=== PATIENT | male | born 1955 | race Caucasian/White ===

== ENCOUNTER 2022-01-26 10:14 | Emergency (ER) | payer OTHER, MEDICARE ==
[~2022-01-26] VITALS: Ht 177.8 cm; Wt 63.6 kg
[2022-01-26 11:30] LABS: BASOPHILS # (AUTO) 0.1 X10'3 (0-0.2); BASOPHILS % (AUTO) 0.5 % (0-1); EOSINOPHILS % (AUTO) 0.1 % (0-6); HEMATOCRIT 33.8 % (42.0-52.0); HEMOGLOBIN 11.2 g/dl (14.0-17.9); LYMPHOCYTES # (AUTO) 1.5 X10'3 (1.1-4.8); LYMPHOCYTES % (AUTO) 12.9 % (21-51); MEAN CORPUSCULAR HEMOGLOBIN 29.3 PG (27.0-31.0); MEAN CORPUSCULAR HGB CONC 33.2 g/dL (33.0-36.5); MEAN CORPUSCULAR VOLUME 88.1 FL (78-98); MEAN PLATELET VOLUME 8.3 FL (7.4-10.4); MONOCYTES # (AUTO) 1.1 X10'3 (0-0.9); MONOCYTES % (AUTO) 9.3 % (2-12); NEUTROPHILS # (AUTO) 8.8 X10'3 (1.8-7.7); NEUTROPHILS % (AUTO) 77.2 % (42-75); PLATELET COUNT 410 X10'3 (140-440); RED BLOOD COUNT 3.83 X10'6 (4.70-6.10); RED CELL DISTRIBUTION WIDTH 13.6 % (11.5-14.5); WHITE BLOOD COUNT 11.4 X10'3 (4.5-11.0)
[2022-01-26 11:40] LABS: ALANINE AMINOTRANSFERASE 30 U/L (12-78); ALBUMIN 3.9 G/DL (3.4-5.0); ALBUMIN/GLOBULIN RATIO 0.9 (1.1-1.5); ALKALINE PHOSPHATASE 135 IU/L (46-116); ANION GAP 12 (8-16); ASPARTATE AMINO TRANSFERASE 41 U/L (10-37); BILIRUBIN,TOTAL 0.8 MG/DL (0.1-1.0); BLOOD UREA NITROGEN 16 MG/DL (7-18); BUN/CREATININE RATIO 17.6 (5.4-32.0); CALCIUM 9.4 MG/DL (8.5-10.1); CHLORIDE 92 MMOL/L (99-107); CREATININE 0.91 MG/DL (0.60-1.10); GLUCOSE 413 MG/DL (70-104); LIPASE < 50 U/L (73-393); POTASSIUM 4.7 MMOL/L (3.5-5.1); SODIUM 131 MMOL/L (135-145); TOTAL PROTEIN 8.2 G/DL (6.4-8.2); eGFR 83 ML/MIN
[2022-01-26] MEDS ORDERED: normal saline 1000ML IV soln IVB ONE ×2 (11:45→11:55)
[2022-01-26] MEDS ORDERED: ondansetron/PF 4mg/2ml inj IV ONE (12:55)
[2022-01-26] MEDS ORDERED: morphine 4 MG/ML inj SYRINge IV ONE ×3 (12:55→14:50)
[2022-01-26] MEDS ORDERED: insulin regular, human 10 units/0.1 ml syringe SQ ONE (13:10)
--- NOTE | 2022-01-26 13:33 | NUR ---
PATIENT REFUSED EKG STATING HE NEEDS SOMETHING FOR PAIN BEFORE HE WILL LAY DOWN. WILL TRY AGAIN FOR EKG AFTER MEDICATION ADMINISTERED.
[2022-01-26] MEDS ORDERED: HYDROcodone/acetaminophen 5mg/325mg tablet PO ONE (13:50)
[2022-01-26] MEDS ORDERED: LORazepam 2 mg/ml vial IV ONE (14:50)
[2022-01-26 15:27] LABS: ABG BASE EXCESS 5.9 mmol/L (-2.0-2.0); ABG HCO3 30.3 mmol/L (22.0-26.0); ABG OXYGEN SATURATION 95.3 % (94-97); ABG PCO2 (T) 43.3 mmHg (35.0-48.0); ABG PO2 (T) 75.5 mmHg (75.0-100.0); ALLEN'S TEST POSITIVE; FCOHb 0.6 % (0.0-3.9); FMetHb 0.3 % (0.0-1.5); FO2Hb 94.4 % (94-97); TOTAL HEMOGLOBIN 11.2 G/dl (14.0-18.0)
[2022-01-26] MEDS ORDERED: HYDR-3965 PO (15:58)
[2022-01-26] MEDS ORDERED: ONDA4TAB12 PO (16:08)
[2022-01-26 18:42] VITALS: BP 122/71
== END 2022-01-26 18:44 | disposition home or self-care (01) ==
LOC: ER 10:15
DX: E11.65 Type 2 diabetes mellitus with hyperglycemia (principal); E86.0 Dehydration; I10 Essential (primary) hypertension; G89.29 Other chronic pain; Z90.49 Acquired absence of other specified parts of digestive tract; Z98.890 Other specified postprocedural states; Z88.8 Allergy status to other drugs, medicaments and biological substances; Z79.899 Other long term (current) drug therapy
CPT/HCPCS: 36415; 36600; 71045; 80053; 80320; 82803; 82948; 83605; 83690; 84145; 85018; 85025; 87040; 93005; 96361; 96372; 96374; 96375; 96376; 99285; J1815; J2060; J2270; J2405; J7030

== ENCOUNTER 2022-11-07 23:29 | Emergency (ER) | payer OTHER, BC ==
[~2022-11-07] VITALS: Ht 177.8 cm; Wt 62.6 kg
[~2022-11-07 23:29] MED LIST: CEPH-585 PO; DULO40CA2 PO; FENT1PAT12 TD; GOLYS PO; INSU100C10 SQ; LACT10SO3 PO; LACT1CAP65 PO; MORP60CP14 PO; ONDA4TAB12 PO; TRAZ-251 PO; ZOF4T PO; ZOLP10TA5 PO; [UNRECOGNIZED DRUG - CODE] PO; [UNRECOGNIZED DRUG - CODE] PO
[2022-11-07 23:31] VITALS: BP 136/55
== END 2022-11-08 03:23 | disposition left against medical advice (07) ==
LOC: ER 23:30
DX: K59.03 Drug induced constipation (principal); T40.2X5A Adverse effect of other opioids, initial encounter; E11.9 Type 2 diabetes mellitus without complications; G89.29 Other chronic pain; Y92.89 Other specified places as the place of occurrence of the external cause; Z88.8 Allergy status to other drugs, medicaments and biological substances; Z79.899 Other long term (current) drug therapy
CPT/HCPCS: 74018; 99283

== ENCOUNTER 2022-11-09 08:53 | Emergency (ER) | payer OTHER, BC ==
[~2022-11-09] VITALS: Ht 177.8 cm; Wt 72.0 kg
[2022-11-09] MEDS ORDERED: magnesium oxide 400mg tablet PO ONE (10:25)
[2022-11-09] MEDS ORDERED: lactulose 20gm/30ml cup PO ONE (10:25)
[2022-11-09] MEDS ORDERED: methylnaltrexone br 12mg/0.6ml inj***SubQ only SQ ONE (10:25)
[2022-11-09] MEDS ORDERED: bisacodyl 10mg suppository rectal RC STA (10:27)
[2022-11-09 11:33] VITALS: BP 142/86
--- NOTE | 2022-11-09 12:32 | NUR ---
pt had large BM after medications given.
== END 2022-11-09 14:42 | disposition home or self-care (01) ==
LOC: ER 08:54
DX: K59.00 Constipation, unspecified (principal); E11.9 Type 2 diabetes mellitus without complications; Z88.8 Allergy status to other drugs, medicaments and biological substances; Z90.49 Acquired absence of other specified parts of digestive tract
CPT/HCPCS: 74018; 96372; 99284; J2212

== ENCOUNTER 2022-12-17 10:19 | Emergency (ER) | payer OTHER, BC ==
[~2022-12-17] VITALS: Ht 177.8 cm; Wt 68.2 kg
[2022-12-17 10:35] VITALS: BP 90/51
[2022-12-17] MEDS ORDERED: methylnaltrexone br 12mg/0.6ml inj***SubQ only SQ ONE (11:45)
== END 2022-12-17 12:15 | disposition home or self-care (01) ==
LOC: ER 10:20
DX: K59.00 Constipation, unspecified (principal); E11.9 Type 2 diabetes mellitus without complications; G89.29 Other chronic pain; Z88.5 Allergy status to narcotic agent; Z88.8 Allergy status to other drugs, medicaments and biological substances
CPT/HCPCS: 96372; 99283; J2212

== ENCOUNTER 2023-01-13 10:27 | Emergency (ER) | payer OTHER, BC ==
[~2023-01-13] VITALS: Ht 177.8 cm; Wt 72.7 kg
[2023-01-13] MEDS ORDERED: lactulose 20gm/30ml cup PO ONE (11:50)
[2023-01-13] MEDS ORDERED: methylnaltrexone br 12mg/0.6ml inj***SubQ only SQ ONE (11:50)
[2023-01-13 12:45] VITALS: BP 121/98
== END 2023-01-13 12:47 | disposition home or self-care (01) ==
LOC: ER 10:28
DX: K59.00 Constipation, unspecified (principal); E11.9 Type 2 diabetes mellitus without complications; Z88.5 Allergy status to narcotic agent; Z88.8 Allergy status to other drugs, medicaments and biological substances; Z88.6 Allergy status to analgesic agent; Z79.899 Other long term (current) drug therapy
CPT/HCPCS: 74018; 96372; 99284; J2212; 99283

== ENCOUNTER 2023-03-07 20:28 | Emergency (ER) | payer OTHER, BC, MEDICAID ==
[~2023-03-07 20:28] MED LIST changes: -CEPH-585 PO
== END 2023-03-07 22:05 | disposition left against medical advice (07) ==
LOC: ER 20:28
DX: R10.9 Unspecified abdominal pain (principal); Z53.21 Procedure and treatment not carried out due to patient leaving prior to being seen by health care provider

== ENCOUNTER 2024-02-16 10:28 | Emergency (ER) | payer OTHER, MEDICARE ==
[~2024-02-16] VITALS: Ht 177.8 cm; Wt 65.0 kg
[~2024-02-16 10:28] MED LIST changes: -GOLYS PO; +HYDR4TAB55 PO; -LACT10SO3 PO; -LACT1CAP65 PO; -ONDA4TAB12 PO; +SULF1TAB45 PO; -[UNRECOGNIZED DRUG - CODE] PO
[2024-02-16] MEDS: magnesium citrate 296ml oral solution PO ONE (13:41)
[2024-02-16] MEDS: methylnaltrexone br 12mg/0.6ml inj***SubQ only SQ ONE (13:41)
[2024-02-16 13:54] VITALS: BP 118/60; PULSE 74; RESP 16; TEMP 97.8; O2SAT 99
== END 2024-02-16 16:25 | disposition home or self-care (01) ==
LOC: ER 10:29
DX: K59.00 Constipation, unspecified (principal); E11.9 Type 2 diabetes mellitus without complications; I25.10 Atherosclerotic heart disease of native coronary artery without angina pectoris; Z88.5 Allergy status to narcotic agent; Z88.8 Allergy status to other drugs, medicaments and biological substances; Z79.899 Other long term (current) drug therapy; Z79.4 Long term (current) use of insulin; Z90.49 Acquired absence of other specified parts of digestive tract
CPT/HCPCS: 74018; 96372; 99283; J2212

== ENCOUNTER 2024-02-17 14:34 | Emergency (ER) | payer OTHER, MEDICARE ==
[~2024-02-17] VITALS: Ht 172.7 cm; Wt 81.8 kg
[2024-02-17 14:54] VITALS: BP 108/60; PULSE 79; TEMP 97.8; O2SAT 98
[2024-02-17 17:13] VITALS: RESP 16
[2024-02-17] MEDS: methylnaltrexone br 12mg/0.6ml inj***SubQ only SQ ONE (17:18)
== END 2024-02-17 17:41 | disposition home or self-care (01) ==
LOC: ER 14:35
DX: K59.00 Constipation, unspecified (principal); E11.9 Type 2 diabetes mellitus without complications; G89.29 Other chronic pain; Z88.5 Allergy status to narcotic agent; Z88.8 Allergy status to other drugs, medicaments and biological substances; Z79.899 Other long term (current) drug therapy; Z79.4 Long term (current) use of insulin; Z90.49 Acquired absence of other specified parts of digestive tract
CPT/HCPCS: 96372; 99283; J2212

== ENCOUNTER 2024-03-13 07:54 | Inpatient (IN) | payer OTHER, MEDICARE ==
[~2024-03-13] VITALS: Ht 177.8 cm; Wt 65.0 kg
[~2024-03-13 07:54] MED LIST changes: -SULF1TAB45 PO
[2024-03-13] MEDS: normal saline 1000ml 1,000 ML IV ONE (09:31)
[2024-03-13 09:50] LABS: BASOPHILS # (AUTO) 0.1 X10'3 (0-0.2); BASOPHILS % (AUTO) 0.8 % (0-1); EOSINOPHILS # (AUTO) 0.1 X10'3 (0-0.9); EOSINOPHILS % (AUTO) 0.7 % (0-6); HEMATOCRIT 39.1 % (42.0-52.0); HEMOGLOBIN 12.7 g/dl (14.0-17.9); LYMPHOCYTES # (AUTO) 1.8 X10'3 (1.1-4.8); LYMPHOCYTES % (AUTO) 18.8 % (21-51); MEAN CORPUSCULAR HEMOGLOBIN 30.4 PG (27.0-31.0); MEAN CORPUSCULAR HGB CONC 32.5 g/dL (33.0-36.5); MEAN CORPUSCULAR VOLUME 93.5 FL (78-98); MEAN PLATELET VOLUME 8.6 FL (7.4-10.4); MONOCYTES # (AUTO) 1.3 X10'3 (0-0.9); MONOCYTES % (AUTO) 12.8 % (2-12); NEUTROPHILS # (AUTO) 6.6 X10'3 (1.8-7.7); NEUTROPHILS % (AUTO) 66.9 % (42-75); PLATELET COUNT 235 X10'3 (140-440); RED BLOOD COUNT 4.19 X10'6 (4.70-6.10); RED CELL DISTRIBUTION WIDTH 13.8 % (11.5-14.5); WHITE BLOOD COUNT 9.8 X10'3 (4.5-11.0)
[2024-03-13 09:55] LABS: BILIRUBIN,URINE NEGATIVE (Neg); CLARITY,URINE CLOUDY (Clear); COLOR,URINE YELLOW (Yellow); GLUCOSE, URINE >=1000 mg/dl (Neg); KETONES,URINE 40 mg/dl (Neg); LEUKOCYTE ESTERASE ,URINE TRACE (Neg); NITRITES, URINE POSITIVE (Neg); OCCULT BLOOD,URINE NEGATIVE (Neg); PROTEIN,URINE NEGATIVE (Neg); UROBILINOGEN,URINE 0.2 E.U/dL (0.2-1.0)
[2024-03-13 10:04] LABS: BACTERIA,URINE 2+ /HPF (Neg); SQUAMOUS EPITHELIAL CELL,UR FEW /LPF (FEW); UA COLLECTION TYPE FOLEY CATH
[2024-03-13 10:05] LABS: MUCUS STRANDS FEW /LPF (Neg); RBC,URINE 0-2 /HPF (0-2); TRANSITIONAL EPI CELLS,URINE FEW /HPF; WBC CLUMPS,URINE MANY /HPF (NEGATIVE); WBC,URINE 30-50 /HPF (0-4)
[2024-03-13 10:06] LABS: ALBUMIN 4.1 G/DL (3.4-5.0); ANION GAP 7 (8-16); BLOOD UREA NITROGEN 20 MG/DL (7-18); BUN/CREATININE RATIO 23.3 (10.0-20.0); CALCIUM 9.7 MG/DL (8.5-10.1); CHLORIDE 90 MMOL/L (99-107); CREATININE 0.86 MG/DL (0.60-1.10); GLUCOSE 384 MG/DL (70-104); SODIUM 131 MMOL/L (135-145); TOTAL CARBON DIOXIDE 34.4 MMOL/L (24-32); eCRCL 75 ML/MIN; eGFR 88 ML/MIN
[2024-03-13 10:06] LABS: COARSE GRANULAR CAST 0-3 /LPF (NEGATIVE)
[2024-03-13] MEDS: cephalexin 250mg capsule PO ONE (10:49)
[2024-03-13] MEDS ORDERED: diphenhydrAMINE 50 mg/ml inj IV PRN (11:10)
[2024-03-13] MEDS ORDERED: acetaminophen 650mg rectal suppository RC PRN (11:10)
[2024-03-13] MEDS ORDERED: acetaminophen 325mg tablet PO PRN ×2 (11:10)
[2024-03-13] MEDS ORDERED: diphenhydrAMINE 25mg capsule PO PRN (11:10)
[2024-03-13] MEDS ORDERED: ondansetron 4mg rapidly disintigrating tab PO PRN (11:10)
[2024-03-13] MEDS ORDERED: magnesium hydroxide 30ml (MOM) UD suspension PO PRN (11:10)
[2024-03-13] MEDS ORDERED: mag hydrox/Alum hydrox/simeth 30ml oral suspension PO PRN (11:10)
[2024-03-13] MEDS ORDERED: bisacodyl 10mg suppository rectal RC PRN (11:10)
[2024-03-13] MEDS ORDERED: ondansetron/PF 4mg/2ml inj IV PRN (11:10)
[2024-03-13] MEDS ORDERED: zolpidem 5mg tablet PO PRN (11:15)
[2024-03-13 11:32] LABS: APTT 24 SECONDS (22-32)
[2024-03-13 11:39] LABS: MAGNESIUM 2.4 MG/DL (1.5-2.4); PHOSPHORUS 3.2 MG/DL (2.3-4.5); PRO BRAIN NATRIURETIC PEPTIDE 192 PG/ML (0-125)
[2024-03-13] MEDS: normal saline 1000ml 1,000 ML IV SCH (11:50)
[2024-03-13] MEDS: HYDROcodone/acetaminophen 5mg/325mg tablet PO PRN (13:01)
[2024-03-13] MEDS: haloperidol lactate 5mg/ml inj IVH ONE (13:55)
[2024-03-13] MEDS: LORazepam 1 MG tablet PO ONE (14:07)
[2024-03-13] MEDS: fentaNYL 75 MCG/hour patch.TD72 TD SCH (16:10)
[2024-03-13] MEDS: diazepam inj 5 MG/ML inj. IM ONE (16:15)
[2024-03-13 19:35] LABS: THYROID STIMULATING HORMONE 3.03 ulU/ml (0.34-4.50)
[2024-03-13] MEDS: docusate sod 100mg capsule PO SCH (20:00)
[2024-03-13] MEDS ORDERED: temazepam 15mg capsule PO PRN (21:00)
[2024-03-13] MEDS: heparin, porcine 5000 units/ml vial SQ SCH (21:02)
[2024-03-13] MEDS: duloxetine 20mg capsule.DR PO SCH (21:07)
[2024-03-13] MEDS: traZODone 50mg tablet PO SCH (21:07)
[2024-03-13 22:00] VITALS: BP 109/61; PULSE 89; RESP 12; TEMP 97.6; O2SAT 92
[2024-03-13] MEDS ORDERED: DEXTROSE 15 GM of carb/4 tabs (each vial/BOTTLE has 4 tablets) PO PRN ×2 (23:15)
[2024-03-13] MEDS ORDERED: dextrose 50%-water 50ml dispensing syringe IV PRN ×2 (23:15)
[2024-03-13] MEDS ORDERED: glucagon, human recombinant 1mg kit SUBCUT PRN (23:15)
[2024-03-14 05:36] LABS: BASOPHILS % (AUTO) 0.4 % (0-1); EOSINOPHILS # (AUTO) 0.2 X10'3 (0-0.9); EOSINOPHILS % (AUTO) 1.8 % (0-6); HEMATOCRIT 37.8 % (42.0-52.0); HEMOGLOBIN 12.4 g/dl (14.0-17.9); LYMPHOCYTES # (AUTO) 1.8 X10'3 (1.1-4.8); LYMPHOCYTES % (AUTO) 18.1 % (21-51); MEAN CORPUSCULAR HEMOGLOBIN 30.4 PG (27.0-31.0); MEAN CORPUSCULAR HGB CONC 32.9 g/dL (33.0-36.5); MEAN CORPUSCULAR VOLUME 92.4 FL (78-98); MEAN PLATELET VOLUME 9.5 FL (7.4-10.4); MONOCYTES # (AUTO) 0.9 X10'3 (0-0.9); NEUTROPHILS # (AUTO) 7.1 X10'3 (1.8-7.7); NEUTROPHILS % (AUTO) 70.7 % (42-75); PLATELET COUNT 221 X10'3 (140-440); RED BLOOD COUNT 4.09 X10'6 (4.70-6.10); RED CELL DISTRIBUTION WIDTH 13.8 % (11.5-14.5); WHITE BLOOD COUNT 10.1 X10'3 (4.5-11.0)
[2024-03-14 05:50] LABS: ALANINE AMINOTRANSFERASE 44 U/L (12-78); ALBUMIN 3.2 G/DL (3.4-5.0); ALBUMIN/GLOBULIN RATIO 0.9 (1.1-1.5); ALKALINE PHOSPHATASE 122 IU/L (46-116); ANION GAP 8 (8-16); ASPARTATE AMINO TRANSFERASE 37 U/L (10-37); BILIRUBIN,TOTAL 0.9 MG/DL (0.1-1.0); BLOOD UREA NITROGEN 13 MG/DL (7-18); BUN/CREATININE RATIO 17.8 (10.0-20.0); CALCIUM 8.7 MG/DL (8.5-10.1); CHLORIDE 94 MMOL/L (99-107); CHOL/HDL RATIO 2.4 (0.00-4.99); CHOLESTEROL 192 MG/DL (0-200); CREATININE 0.73 MG/DL (0.60-1.10); GLUCOSE 305 MG/DL (70-104); HDL CHOLESTEROL 80 MG/DL (35-60); LDL CHOLESTEROL 92 MG/DL (50-100); POTASSIUM 4.7 MMOL/L (3.5-5.1); SODIUM 134 MMOL/L (135-145); TOTAL CARBON DIOXIDE 32.4 MMOL/L (24-32); TOTAL PROTEIN 6.6 G/DL (6.4-8.2); TRIGLYCERIDES 92 MG/DL (20-135); eCRCL 88 ML/MIN; eGFR > 90 ML/MIN
[2024-03-14 06:00] VITALS: BP 127/69; PULSE 85; RESP 13; TEMP 97.8; O2SAT 94
[2024-03-14] MEDS: nicotine 21mg patch - 24 hr TD SCH (07:09)
[2024-03-14] MEDS: pantoprazole 40mg Tablet.DR PO SCH (07:10)
[2024-03-14] MEDS: CefTRIAXone/D5W-Rocephin 1gm 50 ML IV SCH (07:10)
[2024-03-14] MEDS: ondansetron 4mg rapidly disintigrating tab PO PRN ×2 (07:28→12:43)
[2024-03-14 08:00] VITALS: RESP 12; O2SAT 94
[2024-03-14] MEDS: INSULIN LISPRO 100 UNIT/ML INSULN.PEN MULTI-DOSE SQ SCH ×2 (09:00→09:05)
[2024-03-14 10:00] VITALS: BP 120/65; PULSE 78; RESP 15; TEMP 97.8; O2SAT 93
[2024-03-14] MEDS ORDERED: fentaNYL 75 MCG/hour patch.TD72 TD SCH (12:57)
[2024-03-14] MEDS: lactose-reduced food (Ensure Enlive) - 237ml bottle PO SCH (13:00)
[2024-03-14] MEDS: morphine 2 MG/ML inj. syringe IV PRN (14:01)
[2024-03-14 18:00] VITALS: BP 126/72; PULSE 85; RESP 14; TEMP 98; O2SAT 90
[2024-03-14] MEDS: HYDROmorphone 2mg tablet PO SCH (19:58)
[2024-03-14 20:00] VITALS: RESP 16; O2SAT 95
[2024-03-14] MEDS: insulin glargine (Lantus) pen - multi-dose SQ SCH (21:39)
[2024-03-14 22:00] VITALS: BP 122/66; PULSE 84; RESP 14; TEMP 98.3; O2SAT 95
[2024-03-15 06:00] VITALS: BP 101/56; PULSE 68; RESP 18; TEMP 96.9; O2SAT 96
[2024-03-15] MEDS: methylnaltrexone br 12mg/0.6ml inj***SubQ only SQ ONE (06:07)
[2024-03-15 07:37] LABS: BASOPHILS % (AUTO) 0.4 % (0-1); EOSINOPHILS # (AUTO) 0.2 X10'3 (0-0.9); EOSINOPHILS % (AUTO) 2.2 % (0-6); HEMATOCRIT 42.1 % (42.0-52.0); HEMOGLOBIN 13.5 g/dl (14.0-17.9); LYMPHOCYTES # (AUTO) 2.6 X10'3 (1.1-4.8); LYMPHOCYTES % (AUTO) 26.3 % (21-51); MEAN CORPUSCULAR HEMOGLOBIN 30.3 PG (27.0-31.0); MEAN CORPUSCULAR VOLUME 94.5 FL (78-98); MONOCYTES % (AUTO) 10.1 % (2-12); NEUTROPHILS # (AUTO) 6.1 X10'3 (1.8-7.7); PLATELET COUNT 272 X10'3 (140-440); RED BLOOD COUNT 4.45 X10'6 (4.70-6.10); RED CELL DISTRIBUTION WIDTH 13.9 % (11.5-14.5)
[2024-03-15 07:50] LABS: ALANINE AMINOTRANSFERASE 46 U/L (12-78); ALBUMIN 3.6 G/DL (3.4-5.0); ALBUMIN/GLOBULIN RATIO 0.9 (1.1-1.5); ALKALINE PHOSPHATASE 119 IU/L (46-116); ANION GAP 4 (8-16); ASPARTATE AMINO TRANSFERASE 41 U/L (10-37); BILIRUBIN,TOTAL 0.6 MG/DL (0.1-1.0); BLOOD UREA NITROGEN 17 MG/DL (7-18); CHLORIDE 94 MMOL/L (99-107); CREATININE 0.85 MG/DL (0.60-1.10); GLUCOSE 299 MG/DL (70-104); POTASSIUM 4.6 MMOL/L (3.5-5.1); SODIUM 133 MMOL/L (135-145); TOTAL PROTEIN 7.5 G/DL (6.4-8.2); eCRCL 75 ML/MIN; eGFR 89 ML/MIN
[2024-03-15 08:45] VITALS: RESP 16
[2024-03-15 12:00] VITALS: BP 115/74; PULSE 88; RESP 15; TEMP 97.9; O2SAT 94
[2024-03-15] MEDS ORDERED: GADOTERATE MEGLUMINE 7.5 MMOL/15 ML VIAL IV ONE (14:39)
[2024-03-15] MEDS: mineral oil 133ml enema RC PRN (16:08)
[2024-03-15] MEDS: INSULIN LISPRO 100 UNIT/ML INSULN.PEN MULTI-DOSE SQ SCH (17:45)
[2024-03-15 18:00] VITALS: BP 121/74; PULSE 80; RESP 14; TEMP 97.9; O2SAT 96
[2024-03-15] MEDS: magnesium citrate 296ml oral solution PO ONE (19:45)
[2024-03-15] MEDS: lactulose 20gm/30ml cup PO SCH (20:00)
[2024-03-15 20:27] LABS: OCCULT BLOOD STOOL NEGATIVE (Neg)
[2024-03-15] MEDS: polyethylene glycol 3350 17gm powd pack PO SCH (21:00)
[2024-03-15] MEDS: morphine ER 30mg tablet PO SCH (21:19)
[2024-03-15 22:00] VITALS: BP 100/52; PULSE 82; RESP 15; TEMP 97.9; O2SAT 99
[2024-03-16 06:00] VITALS: BP 134/82; PULSE 72; RESP 16; TEMP 96.7; O2SAT 96
[2024-03-16 07:41] LABS: BASOPHILS # (AUTO) 0.1 X10'3 (0-0.2); BASOPHILS % (AUTO) 0.6 % (0-1); EOSINOPHILS # (AUTO) 0.3 X10'3 (0-0.9); EOSINOPHILS % (AUTO) 3.5 % (0-6); HEMATOCRIT 42.5 % (42.0-52.0); HEMOGLOBIN 13.8 g/dl (14.0-17.9); LYMPHOCYTES # (AUTO) 2.4 X10'3 (1.1-4.8); LYMPHOCYTES % (AUTO) 25.4 % (21-51); MEAN CORPUSCULAR HEMOGLOBIN 30.5 PG (27.0-31.0); MEAN CORPUSCULAR HGB CONC 32.4 g/dL (33.0-36.5); MEAN CORPUSCULAR VOLUME 94.3 FL (78-98); MEAN PLATELET VOLUME 9.3 FL (7.4-10.4); MONOCYTES % (AUTO) 10.8 % (2-12); NEUTROPHILS # (AUTO) 5.6 X10'3 (1.8-7.7); NEUTROPHILS % (AUTO) 59.7 % (42-75); PLATELET COUNT 227 X10'3 (140-440); RED BLOOD COUNT 4.51 X10'6 (4.70-6.10); RED CELL DISTRIBUTION WIDTH 14.5 % (11.5-14.5); WHITE BLOOD COUNT 9.4 X10'3 (4.5-11.0)
[2024-03-16] MEDS ORDERED: vancomycin/NS 1 GM ADD-VANTAGE 250 ML IV SCH (08:00)
[2024-03-16 08:17] LABS: ALANINE AMINOTRANSFERASE 47 U/L (12-78); ALBUMIN 3.2 G/DL (3.4-5.0); ALBUMIN/GLOBULIN RATIO 0.8 (1.1-1.5); ALKALINE PHOSPHATASE 107 IU/L (46-116); ANION GAP 0 (8-16); ASPARTATE AMINO TRANSFERASE 48 U/L (10-37); BILIRUBIN,TOTAL 0.4 MG/DL (0.1-1.0); BLOOD UREA NITROGEN 16 MG/DL (7-18); BUN/CREATININE RATIO 21.1 (10.0-20.0); CALCIUM 9.1 MG/DL (8.5-10.1); CHLORIDE 101 MMOL/L (99-107); CREATININE 0.76 MG/DL (0.60-1.10); GLUCOSE 98 MG/DL (70-104); SODIUM 136 MMOL/L (135-145); TOTAL CARBON DIOXIDE 35.1 MMOL/L (24-32); TOTAL PROTEIN 7.1 G/DL (6.4-8.2); eCRCL 84 ML/MIN; eGFR > 90 ML/MIN
[2024-03-16 10:00] VITALS: BP 126/80; PULSE 91; RESP 18; TEMP 98.2; O2SAT 95
[2024-03-16 10:22] VITALS: RESP 18; O2SAT 95
[2024-03-16] MEDS: LIDOcaine 2% jelly 6ml syringe ***for topical use only MM ONE (12:25)
[2024-03-16] MEDS ORDERED: CEPH500C2 PO (13:34)
[2024-03-16] MEDS: LidoCAINE 2% Topical Jelly 11mL syringe (UROJET) MM ONE (14:58)
[2024-03-16] MEDS: fentaNYL 75 MCG/hour patch.TD72 TD SCH (16:55)
[2024-03-16 17:22] VITALS: RESP 15
[2024-03-16] MEDS: HYDROmorphone 2mg tablet PO PRN (17:22)
== END 2024-03-16 18:31 | disposition home or self-care (01) | DRG 698 ==
LOC: ER 07:56 → ED HOLD 11:12 → EDBEDREQ 20:40 → ORTHO 4S 21:56
PROVIDERS: ADMIT Family Medicine; ATTEND Family Medicine
DX: T83.518A Infection and inflammatory reaction due to other urinary catheter, initial encounter (principal); G93.41 Metabolic encephalopathy; L03.116 Cellulitis of left lower limb; N39.0 Urinary tract infection, site not specified; I50.32 Chronic diastolic (congestive) heart failure; I13.0 Hypertensive heart and chronic kidney disease with heart failure and stage 1 through stage 4 chronic kidney disease, or unspecified chronic kidney disease; M86.8X7 Other osteomyelitis, ankle and foot; E11.69 Type 2 diabetes mellitus with other specified complication; E78.5 Hyperlipidemia, unspecified; E11.22 Type 2 diabetes mellitus with diabetic chronic kidney disease; E11.65 Type 2 diabetes mellitus with hyperglycemia; E86.0 Dehydration; N18.9 Chronic kidney disease, unspecified; K59.09 Other constipation; N40.1 Benign prostatic hyperplasia with lower urinary tract symptoms; S91.302A Unspecified open wound, left foot, initial encounter; X58.XXXA Exposure to other specified factors, initial encounter; R33.8 Other retention of urine; G89.4 Chronic pain syndrome; I25.10 Atherosclerotic heart disease of native coronary artery without angina pectoris; K74.60 Unspecified cirrhosis of liver; E11.51 Type 2 diabetes mellitus with diabetic peripheral angiopathy without gangrene; D64.9 Anemia, unspecified; B96.20 Unspecified Escherichia coli [E. coli] as the cause of diseases classified elsewhere; Z83.3 Family history of diabetes mellitus; B19.20 Unspecified viral hepatitis C without hepatic coma; F10.20 Alcohol dependence, uncomplicated; Y93.89 Activity, other specified; Z88.8 Allergy status to other drugs, medicaments and biological substances; Z72.0 Tobacco use; Z88.5 Allergy status to narcotic agent; Y99.8 Other external cause status; Z87.442 Personal history of urinary calculi; Z90.411 Acquired partial absence of pancreas; Z90.79 Acquired absence of other genital organ(s); Y92.89 Other specified places as the place of occurrence of the external cause; Z90.81 Acquired absence of spleen
CPT/HCPCS: 36415; 70450; 71045; 73720; 74018; 80048; 80053; 80061; 81001; 82140; 82272; 82948; 83036; 83605; 83735; 83880; 84100; 84145; 84443; 84484; 85025; 85610; 85730; 87040; 87077; 87081; 87088; 87186; 92508; 92616; 96360; 99285; A4314; A4615; A6212; A6213; A6449; A9575; G0378; J0696; J1644; J1815; J2212; J2270; J7030

== ENCOUNTER 2024-03-18 21:48 | Emergency (ER) | payer OTHER, MEDICARE ==
[~2024-03-18] VITALS: Ht 177.8 cm; Wt 64.4 kg
[~2024-03-18 21:48] MED LIST changes: +CEPH500C2 PO; -[UNRECOGNIZED DRUG - CODE] PO
[2024-03-18] MEDS: methylnaltrexone br 12mg/0.6ml inj***SubQ only SQ ONE (22:43)
[2024-03-18 22:58] LABS: ALANINE AMINOTRANSFERASE 110 U/L (12-78); ALBUMIN 3.6 G/DL (3.4-5.0); ALBUMIN/GLOBULIN RATIO 0.9 (1.1-1.5); ALKALINE PHOSPHATASE 110 IU/L (46-116); ANION GAP 4 (8-16); ASPARTATE AMINO TRANSFERASE 120 U/L (10-37); BILIRUBIN,TOTAL 0.5 MG/DL (0.1-1.0); BLOOD UREA NITROGEN 24 MG/DL (7-18); BUN/CREATININE RATIO 21.2 (10.0-20.0); CALCIUM 9.2 MG/DL (8.5-10.1); CHLORIDE 91 MMOL/L (99-107); CREATININE 1.13 MG/DL (0.60-1.10); LIPASE 21 U/L (16-77); POTASSIUM 5.6 MMOL/L (3.5-5.1); SODIUM 129 MMOL/L (135-145); TOTAL CARBON DIOXIDE 34.3 MMOL/L (24-32); TOTAL PROTEIN 7.5 G/DL (6.4-8.2); eCRCL 56 ML/MIN; eGFR 64 ML/MIN
[2024-03-18 23:01] LABS: GLUCOSE 474 MG/DL (70-104)
[2024-03-18 23:08] LABS: BASOPHILS # (AUTO) 0.1 X10'3 (0-0.2); BASOPHILS % (AUTO) 0.9 % (0-1); EOSINOPHILS # (AUTO) 0.2 X10'3 (0-0.9); EOSINOPHILS % (AUTO) 1.7 % (0-6); HEMATOCRIT 35.2 % (42.0-52.0); HEMOGLOBIN 11.7 g/dl (14.0-17.9); LYMPHOCYTES # (AUTO) 1.4 X10'3 (1.1-4.8); LYMPHOCYTES % (AUTO) 15.3 % (21-51); MEAN CORPUSCULAR HEMOGLOBIN 31.1 PG (27.0-31.0); MEAN CORPUSCULAR HGB CONC 33.2 g/dL (33.0-36.5); MEAN CORPUSCULAR VOLUME 93.5 FL (78-98); MONOCYTES # (AUTO) 1.4 X10'3 (0-0.9); MONOCYTES % (AUTO) 15.3 % (2-12); NEUTROPHILS # (AUTO) 6.3 X10'3 (1.8-7.7); NEUTROPHILS % (AUTO) 66.8 % (42-75); PLATELET COUNT 245 X10'3 (140-440); RED BLOOD COUNT 3.77 X10'6 (4.70-6.10); RED CELL DISTRIBUTION WIDTH 14.5 % (11.5-14.5); WHITE BLOOD COUNT 9.4 X10'3 (4.5-11.0)
[2024-03-19 00:09] LABS: TOTAL CELLS COUNTED 100
[2024-03-19 00:10] LABS: PLATELET ESTIMATE NORMAL; STOMATOCYTES 1+
[2024-03-19] MEDS: normal saline 1000ml 1,000 ML IV ONE (00:12)
[2024-03-19] MEDS: sulfamethoxazole/trimethoprim DS (800/160mg) tablet PO ONE (00:17)
[2024-03-19] MEDS ORDERED: SULF1TAB49 PO (00:38)
[2024-03-19] MEDS ORDERED: NALO25TA4 PO (00:38)
[2024-03-19 02:02] VITALS: BP 113/67; PULSE 85; RESP 20; TEMP 99; O2SAT 97
== END 2024-03-19 02:01 | disposition home or self-care (01) ==
LOC: ER 21:49
DX: N39.0 Urinary tract infection, site not specified (principal); I25.10 Atherosclerotic heart disease of native coronary artery without angina pectoris; E11.9 Type 2 diabetes mellitus without complications; G89.29 Other chronic pain; Z88.8 Allergy status to other drugs, medicaments and biological substances; Z79.899 Other long term (current) drug therapy; Z79.2 Long term (current) use of antibiotics; Z79.4 Long term (current) use of insulin; Z98.890 Other specified postprocedural states; Z90.49 Acquired absence of other specified parts of digestive tract
CPT/HCPCS: 36415; 80053; 82948; 83690; 85007; 85025; 96360; 96361; 96372; 99285; J2212; J7030

== ENCOUNTER 2024-03-23 17:58 | Emergency (ER) | payer OTHER, MEDICARE ==
[~2024-03-23] VITALS: Ht 177.8 cm; Wt 64.4 kg
[~2024-03-23 17:58] MED LIST changes: +NALO25TA4 PO; +SULF1TAB49 PO
[2024-03-23 19:39] VITALS: BP 110/61; PULSE 78; RESP 18; O2SAT 97
[2024-03-23 19:41] LABS: APTT 28 SECONDS (22-32); BASOPHILS # (AUTO) 0.1 X10'3 (0-0.2); EOSINOPHILS # (AUTO) 0.1 X10'3 (0-0.9); EOSINOPHILS % (AUTO) 1.8 % (0-6); HEMATOCRIT 38.8 % (42.0-52.0); HEMOGLOBIN 12.9 g/dl (14.0-17.9); LYMPHOCYTES # (AUTO) 1.4 X10'3 (1.1-4.8); MEAN CORPUSCULAR HGB CONC 33.2 g/dL (33.0-36.5); MEAN CORPUSCULAR VOLUME 93.4 FL (78-98); MEAN PLATELET VOLUME 9.4 FL (7.4-10.4); MONOCYTES # (AUTO) 1.1 X10'3 (0-0.9); MONOCYTES % (AUTO) 17.8 % (2-12); NEUTROPHILS # (AUTO) 3.4 X10'3 (1.8-7.7); NEUTROPHILS % (AUTO) 56.4 % (42-75); PLATELET COUNT 309 X10'3 (140-440); PROTHROMBIN TIME 10.7 SECONDS (9.0-12.0); RED BLOOD COUNT 4.15 X10'6 (4.70-6.10); RED CELL DISTRIBUTION WIDTH 14.1 % (11.5-14.5); WHITE BLOOD COUNT 6.1 X10'3 (4.5-11.0)
[2024-03-23 19:53] LABS: BILIRUBIN,URINE NEGATIVE (Neg); CLARITY,URINE CLEAR (Clear); COLOR,URINE YELLOW (Yellow); GLUCOSE, URINE >=1000 mg/dl (Neg); KETONES,URINE NEGATIVE (Neg); LEUKOCYTE ESTERASE ,URINE NEGATIVE (Neg); NITRITES, URINE NEGATIVE (Neg); OCCULT BLOOD,URINE NEGATIVE (Neg); PROTEIN,URINE NEGATIVE (Neg); UROBILINOGEN,URINE 0.2 E.U/dL (0.2-1.0)
[2024-03-23 19:53] LABS: ALANINE AMINOTRANSFERASE 103 U/L (12-78); ALBUMIN 3.9 G/DL (3.4-5.0); ALBUMIN/GLOBULIN RATIO 0.9 (1.1-1.5); ALKALINE PHOSPHATASE 118 IU/L (46-116); ANION GAP 6 (8-16); ASPARTATE AMINO TRANSFERASE 77 U/L (10-37); BILIRUBIN,TOTAL 0.4 MG/DL (0.1-1.0); BLOOD UREA NITROGEN 22 MG/DL (7-18); BUN/CREATININE RATIO 20.6 (10.0-20.0); CALCIUM 9.4 MG/DL (8.5-10.1); CHLORIDE 95 MMOL/L (99-107); CREATININE 1.07 MG/DL (0.60-1.10); GLUCOSE 249 MG/DL (70-104); POTASSIUM 5.5 MMOL/L (3.5-5.1); SODIUM 133 MMOL/L (135-145); TOTAL CARBON DIOXIDE 32.4 MMOL/L (24-32); TOTAL PROTEIN 8.2 G/DL (6.4-8.2); eCRCL 59 ML/MIN; eGFR 69 ML/MIN
[2024-03-23 20:01] LABS: UA COLLECTION TYPE FOLEY CATH
[2024-03-23 20:02] LABS: MUCUS STRANDS NONE SEEN /LPF (Neg); RBC,URINE 0-2 /HPF (0-2); SQUAMOUS EPITHELIAL CELL,UR FEW /LPF (FEW); WBC,URINE 0-4 /HPF (0-4)
[2024-03-23 20:03] LABS: BACTERIA,URINE FEW /HPF (Neg)
[2024-03-23] MEDS: bisacodyl 5mg tablet.DR PO ONE (20:15)
[2024-03-23 21:28] LABS: BURR CELLS FEW; PLATELET ESTIMATE NORMAL; TARGET CELLS FEW; TOTAL CELLS COUNTED 100
[2024-03-23] MEDS: normal saline 1000ml 1,000 ML IV ONE (21:41)
[2024-03-23] MEDS: methylnaltrexone br 12mg/0.6ml inj***SubQ only SQ ONE (21:41)
[2024-03-23 23:19] VITALS: TEMP 97.2
== END 2024-03-23 23:21 | disposition home or self-care (01) ==
LOC: ER 17:58
DX: K59.00 Constipation, unspecified (principal); E11.9 Type 2 diabetes mellitus without complications; R79.1 Abnormal coagulation profile; Z88.5 Allergy status to narcotic agent; Z79.899 Other long term (current) drug therapy; Z79.2 Long term (current) use of antibiotics; Z90.49 Acquired absence of other specified parts of digestive tract
CPT/HCPCS: 36415; 74176; 80053; 81001; 85007; 85025; 85610; 85730; 96372; 99285; J2212; J7030

== ENCOUNTER 2024-03-26 19:04 | Emergency (ER) | payer OTHER, MEDICARE ==
[2024-03-26 20:02] LABS: BILIRUBIN,URINE NEGATIVE (Neg); CLARITY,URINE CLEAR (Clear); COLOR,URINE YELLOW (Yellow); GLUCOSE, URINE 500 mg/dl (Neg); KETONES,URINE NEGATIVE (Neg); LEUKOCYTE ESTERASE ,URINE NEGATIVE (Neg); NITRITES, URINE NEGATIVE (Neg); OCCULT BLOOD,URINE NEGATIVE (Neg); PH,URINE 6.5 (4.8-8.0); PROTEIN,URINE NEGATIVE (Neg); UROBILINOGEN,URINE 0.2 E.U/dL (0.2-1.0)
[2024-03-26 20:16] LABS: UA COLLECTION TYPE FOLEY CATH
[2024-03-26 20:19] LABS: BASOPHILS # (AUTO) 0.1 X10'3 (0-0.2); EOSINOPHILS # (AUTO) 0.1 X10'3 (0-0.9); HEMOGLOBIN 12.3 g/dl (14.0-17.9); MONOCYTES # (AUTO) 1.1 X10'3 (0-0.9); NEUTROPHILS % (AUTO) 59.1 % (42-75)
[2024-03-26 20:20] LABS: BASOPHILS % (AUTO) 0.7 % (0-1); EOSINOPHILS % (AUTO) 1.6 % (0-6); HEMATOCRIT 37.2 % (42.0-52.0); LYMPHOCYTES # (AUTO) 1.5 X10'3 (1.1-4.8); LYMPHOCYTES % (AUTO) 22.5 % (21-51); MEAN CORPUSCULAR HEMOGLOBIN 30.7 PG (27.0-31.0); MEAN CORPUSCULAR HGB CONC 32.9 g/dL (33.0-36.5); MEAN CORPUSCULAR VOLUME 93.3 FL (78-98); MEAN PLATELET VOLUME 10.1 FL (7.4-10.4); MONOCYTES % (AUTO) 16.1 % (2-12); RED BLOOD COUNT 3.99 X10'6 (4.70-6.10); RED CELL DISTRIBUTION WIDTH 14.2 % (11.5-14.5); WHITE BLOOD COUNT 6.8 X10'3 (4.5-11.0)
[2024-03-26 20:24] LABS: ALANINE AMINOTRANSFERASE 67 U/L (12-78); ALBUMIN 3.8 G/DL (3.4-5.0); ALBUMIN/GLOBULIN RATIO 0.9 (1.1-1.5); ALKALINE PHOSPHATASE 112 IU/L (46-116); ANION GAP 5 (8-16); ASPARTATE AMINO TRANSFERASE 41 U/L (10-37); BILIRUBIN,TOTAL 0.3 MG/DL (0.1-1.0); BLOOD UREA NITROGEN 19 MG/DL (7-18); BUN/CREATININE RATIO 22.4 (10.0-20.0); CALCIUM 9.2 MG/DL (8.5-10.1); CHLORIDE 95 MMOL/L (99-107); CREATININE 0.85 MG/DL (0.60-1.10); GLUCOSE 262 MG/DL (70-104); LIPASE 13 U/L (16-77); POTASSIUM 5.2 MMOL/L (3.5-5.1); SODIUM 132 MMOL/L (135-145); TOTAL CARBON DIOXIDE 31.9 MMOL/L (24-32); eGFR 89 ML/MIN
[2024-03-26] MEDS: methylnaltrexone br 12mg/0.6ml inj***SubQ only SQ ONE (20:24)
[2024-03-26 21:48] VITALS: BP 138/75; PULSE 88; RESP 14; TEMP 98.9; O2SAT 98
[2024-03-26 22:20] LABS: PLATELET COUNT 360 X10'3 (140-440)
== END 2024-03-26 21:53 | disposition home or self-care (01) ==
LOC: ER 19:06
DX: K59.03 Drug induced constipation (principal); T40.2X5A Adverse effect of other opioids, initial encounter; Y92.89 Other specified places as the place of occurrence of the external cause; E11.9 Type 2 diabetes mellitus without complications; G89.29 Other chronic pain; I25.10 Atherosclerotic heart disease of native coronary artery without angina pectoris; Z90.49 Acquired absence of other specified parts of digestive tract; Z98.890 Other specified postprocedural states; Z79.899 Other long term (current) drug therapy; Z79.4 Long term (current) use of insulin; Z79.2 Long term (current) use of antibiotics; Z88.8 Allergy status to other drugs, medicaments and biological substances
CPT/HCPCS: 80053; 81003; 83690; 85025; 96372; 99283; J2212

== ENCOUNTER 2024-03-29 20:44 | Emergency (ER) | payer OTHER, MEDICARE ==
[~2024-03-29] VITALS: Ht 177.8 cm; Wt 64.0 kg
[~2024-03-29 20:44] MED LIST changes: -SULF1TAB49 PO
[2024-03-29] MEDS ORDERED: SODI354S PO (22:24)
[2024-03-29] MEDS: methylnaltrexone br 12mg/0.6ml inj***SubQ only SQ ONE (22:50)
[2024-03-29 23:08] VITALS: BP 128/62; PULSE 76; RESP 18; TEMP 98; O2SAT 98
== END 2024-03-29 23:11 | disposition home or self-care (01) ==
LOC: ER 20:45
DX: K59.03 Drug induced constipation (principal); T40.2X5A Adverse effect of other opioids, initial encounter; I25.10 Atherosclerotic heart disease of native coronary artery without angina pectoris; E11.9 Type 2 diabetes mellitus without complications; G89.29 Other chronic pain; Z88.8 Allergy status to other drugs, medicaments and biological substances; Z79.2 Long term (current) use of antibiotics; Z79.899 Other long term (current) drug therapy; Z79.4 Long term (current) use of insulin; Z98.890 Other specified postprocedural states; Z90.49 Acquired absence of other specified parts of digestive tract; Y92.89 Other specified places as the place of occurrence of the external cause
CPT/HCPCS: 74018; 96372; 99283; J2212

== ENCOUNTER 2024-04-02 20:24 | Emergency (ER) | payer OTHER, MEDICARE ==
[~2024-04-02] VITALS: Ht 177.8 cm; Wt 64.0 kg
[~2024-04-02 20:24] MED LIST changes: +SODI354S PO
[2024-04-02 20:46] VITALS: TEMP 97.5
[2024-04-02] MEDS ORDERED: glycerin ADULT rectal suppository RC ONE (21:25)
[2024-04-02] MEDS: methylnaltrexone br 12mg/0.6ml inj***SubQ only SQ ONE (21:43)
[2024-04-02 21:58] VITALS: BP 100/70; PULSE 89; RESP 18; O2SAT 96
[2024-04-02] MEDS: bisacodyl 10mg suppository rectal RC STA (22:39)
== END 2024-04-02 23:19 | disposition home or self-care (01) ==
LOC: ER 20:24
DX: K59.00 Constipation, unspecified (principal); E11.9 Type 2 diabetes mellitus without complications; G89.29 Other chronic pain; Z88.8 Allergy status to other drugs, medicaments and biological substances; Z79.2 Long term (current) use of antibiotics; Z79.4 Long term (current) use of insulin; Z79.899 Other long term (current) drug therapy; Z98.890 Other specified postprocedural states; Z90.49 Acquired absence of other specified parts of digestive tract
CPT/HCPCS: 96372; 99284; J2212

== ENCOUNTER 2024-04-09 23:15 | Emergency (ER) | payer OTHER, MEDICARE ==
[~2024-04-09] VITALS: Ht 177.8 cm; Wt 64.0 kg
[2024-04-10] MEDS: lactulose 20gm/30ml cup PO ONE (03:26)
[2024-04-10] MEDS: bisacodyl 10mg suppository rectal RC STA (03:27)
[2024-04-10 04:27] VITALS: BP 115/72; PULSE 75; RESP 16; TEMP 97.8; O2SAT 96
== END 2024-04-10 04:29 | disposition home or self-care (01) ==
LOC: ER 23:16
DX: I25.10 Atherosclerotic heart disease of native coronary artery without angina pectoris (principal); E11.9 Type 2 diabetes mellitus without complications; G89.29 Other chronic pain; Z88.8 Allergy status to other drugs, medicaments and biological substances; Z79.1 Long term (current) use of non-steroidal anti-inflammatories (NSAID); Z79.899 Other long term (current) drug therapy; Z79.4 Long term (current) use of insulin; Z90.49 Acquired absence of other specified parts of digestive tract
CPT/HCPCS: 74018; 99283

== ENCOUNTER 2024-04-15 10:24 | Emergency (ER) | payer OTHER, MEDICARE ==
[~2024-04-15] VITALS: Ht 177.8 cm; Wt 63.2 kg
[2024-04-15 11:16] VITALS: TEMP 97.2
[2024-04-15 12:21] VITALS: BP 107/69; PULSE 87; RESP 16; O2SAT 98
[2024-04-15] MEDS: methylnaltrexone br 12mg/0.6ml inj***SubQ only SQ ONE ×2 (12:41→12:45)
== END 2024-04-15 12:49 | disposition home or self-care (01) ==
LOC: ER 10:25
DX: K59.03 Drug induced constipation (principal); T40.2X5A Adverse effect of other opioids, initial encounter; E11.9 Type 2 diabetes mellitus without complications; Z88.5 Allergy status to narcotic agent; Z88.8 Allergy status to other drugs, medicaments and biological substances; Z79.2 Long term (current) use of antibiotics; Z79.4 Long term (current) use of insulin; Z79.899 Other long term (current) drug therapy; Y92.89 Other specified places as the place of occurrence of the external cause
CPT/HCPCS: 96372; 99283; J2212

== ENCOUNTER 2024-04-18 22:39 | Emergency (ER) | payer OTHER, MEDICARE ==
[~2024-04-18] VITALS: Ht 177.8 cm; Wt 64.5 kg
[2024-04-18] MEDS: methylnaltrexone br 12mg/0.6ml inj***SubQ only SQ ONE (23:33)
[2024-04-18 23:52] VITALS: BP 130/70; PULSE 99; RESP 18; TEMP 98.6; O2SAT 96
== END 2024-04-18 23:54 | disposition home or self-care (01) ==
LOC: ER 22:40
DX: K59.03 Drug induced constipation (principal); T40.2X5A Adverse effect of other opioids, initial encounter; E11.9 Type 2 diabetes mellitus without complications; Z88.5 Allergy status to narcotic agent; Z88.8 Allergy status to other drugs, medicaments and biological substances; Z79.2 Long term (current) use of antibiotics; Z79.899 Other long term (current) drug therapy; Z79.4 Long term (current) use of insulin; Z90.49 Acquired absence of other specified parts of digestive tract; Y92.89 Other specified places as the place of occurrence of the external cause
CPT/HCPCS: 96372; 99283; J2212

== ENCOUNTER 2024-04-20 10:54 | Inpatient (IN) | payer OTHER, MEDICARE ==
[~2024-04-20] VITALS: Ht 177.8 cm; Wt 62.0 kg
[2024-04-20 11:32] LABS: BASOPHILS % (AUTO) 0.5 % (0-1); EOSINOPHILS % (AUTO) 0 % (0-6); HEMATOCRIT 38.8 % (42.0-52.0); HEMOGLOBIN 12.7 g/dl (14.0-17.9); LYMPHOCYTES % (AUTO) 13.6 % (21-51); MEAN CORPUSCULAR HEMOGLOBIN 30.7 PG (27.0-31.0); MEAN CORPUSCULAR HGB CONC 32.7 g/dL (33.0-36.5); MEAN CORPUSCULAR VOLUME 93.8 FL (78-98); MEAN PLATELET VOLUME 8.8 FL (7.4-10.4); MONOCYTES # (AUTO) 1.2 X10'3 (0-0.9); MONOCYTES % (AUTO) 16.6 % (2-12); NEUTROPHILS % (AUTO) 69.3 % (42-75); PLATELET COUNT 216 X10'3 (140-440); RED BLOOD COUNT 4.13 X10'6 (4.70-6.10); RED CELL DISTRIBUTION WIDTH 13.7 % (11.5-14.5); WHITE BLOOD COUNT 7.2 X10'3 (4.5-11.0)
[2024-04-20 11:46] LABS: ALBUMIN 3.4 G/DL (3.4-5.0); ANION GAP 6 (8-16); BLOOD UREA NITROGEN 22 MG/DL (7-18); BUN/CREATININE RATIO 18.5 (10.0-20.0); CALCIUM 8.7 MG/DL (8.5-10.1); CHLORIDE 95 MMOL/L (99-107); CREATININE 1.19 MG/DL (0.60-1.10); POTASSIUM 4.5 MMOL/L (3.5-5.1); SODIUM 131 MMOL/L (135-145); TOTAL CARBON DIOXIDE 29.7 MMOL/L (24-32); eCRCL 51 ML/MIN; eGFR 61 ML/MIN
[2024-04-20 11:49] LABS: GLUCOSE 462 MG/DL (70-104)
[2024-04-20 11:54] LABS: PLATELET ESTIMATE NORMAL; TOTAL CELLS COUNTED 100
[2024-04-20 11:55] LABS: ACANTHOCYTES FEW; STOMATOCYTES FEW
[2024-04-20 12:16] LABS: BILIRUBIN,URINE NEGATIVE (Neg); CLARITY,URINE CLOUDY (Clear); COLOR,URINE YELLOW (Yellow); GLUCOSE, URINE >=1000 mg/dl (Neg); KETONES,URINE NEGATIVE (Neg); LEUKOCYTE ESTERASE ,URINE TRACE (Neg); NITRITES, URINE NEGATIVE (Neg); OCCULT BLOOD,URINE MODERATE (Neg); PROTEIN,URINE NEGATIVE (Neg); UROBILINOGEN,URINE 0.2 E.U/dL (0.2-1.0)
[2024-04-20 12:21] LABS: UA COLLECTION TYPE FOLEY CATH
[2024-04-20 12:22] LABS: SQUAMOUS EPITHELIAL CELL,UR FEW /LPF (FEW)
[2024-04-20 12:24] LABS: BACTERIA,URINE 2+ /HPF (Neg); TRANSITIONAL EPI CELLS,URINE FEW /HPF; WBC,URINE 30-50 /HPF (0-4)
[2024-04-20] MEDS: normal saline 1000ML IV soln IVB ONE (12:40)
[2024-04-20] MEDS: acetaminophen 1,000mg/100ml IV 100 ML IV ONE (12:40)
[2024-04-20] MEDS: insulin regular, human 10 units/0.1 ml syringe IV ONE (13:05)
[2024-04-20] MEDS: CefTRIAXone 2gm/D5W 50ml BAG 50 ML IV SCH (13:09)
[2024-04-20] MEDS ORDERED: magnesium hydroxide 30ml (MOM) UD suspension PO PRN (13:25)
[2024-04-20] MEDS ORDERED: acetaminophen 325mg tablet PO PRN (13:25)
[2024-04-20] MEDS ORDERED: potassium Cl 40MEQ/1/2NS 520ml 520 ML IV PRN (13:25)
[2024-04-20] MEDS ORDERED: HYDROcodone/acetaminophen 5mg/325mg tablet PO PRN (13:25)
[2024-04-20] MEDS ORDERED: potassium Cl 20 mEq SR tablet PO PRN ×2 (13:25)
[2024-04-20] MEDS ORDERED: mag hydrox/Alum hydrox/simeth 30ml oral suspension PO PRN (13:25)
[2024-04-20] MEDS ORDERED: magnesium sulf-water 2g/50mL 50 ML IV PRN (13:25)
[2024-04-20] MEDS ORDERED: ondansetron/PF 4mg/2ml inj IV PRN (13:25)
[2024-04-20] MEDS ORDERED: HYDROcodone/acetaminophen 10/325mg tab PO PRN (13:25)
[2024-04-20] MEDS ORDERED: magnesium sulf-water 4G/100mL 100 ML IV PRN (13:25)
[2024-04-20] MEDS ORDERED: morphine 2 MG/ML inj. syringe IV PRN (13:25)
[2024-04-20] MEDS: normal saline 1000ml 1,000 ML IV SCH (13:52)
[2024-04-20 13:54] LABS: MAGNESIUM 1.9 MG/DL (1.5-2.4); PHOSPHORUS 2.8 MG/DL (2.3-4.5)
[2024-04-20] MEDS ORDERED: DEXTROSE 15 GM of carb/4 tabs (each vial/BOTTLE has 4 tablets) PO PRN (14:10)
[2024-04-20] MEDS ORDERED: dextrose 50%-water 50ml dispensing syringe IV PRN ×2 (14:10)
[2024-04-20] MEDS ORDERED: glucagon, human recombinant 1mg kit SUBCUT PRN (14:10)
[2024-04-20 15:00] VITALS: BP 140/84; PULSE 95; RESP 14; TEMP 98; O2SAT 96
[2024-04-20] MEDS: INSULIN LISPRO 100 UNIT/ML INSULN.PEN MULTI-DOSE SQ SCH (17:00)
[2024-04-20 18:00] VITALS: BP 97/55; PULSE 83; RESP 11; TEMP 98.5; O2SAT 97
[2024-04-20] MEDS: K and/or MAG REPLACEMENT MC SCH (20:00)
[2024-04-20 20:41] VITALS: RESP 16; O2SAT 96
[2024-04-20 20:53] VITALS: BP 174/70; PULSE 95; TEMP 98.9; O2SAT 97
[2024-04-20] MEDS ORDERED: insulin glargine (Lantus) pen - multi-dose SQ SCH (21:00)
[2024-04-20] MEDS: heparin, porcine 5000 units/ml vial SQ SCH (23:18)
[2024-04-20] MEDS: docusate sod 100mg capsule PO SCH (23:19)
[2024-04-20] MEDS: insulin glargine (Lantus) pen - multi-dose SQ SCH (23:22)
[2024-04-20] MEDS: morphine 2 MG/ML inj. syringe IV PRN (23:27)
[2024-04-21] VITALS (8 sets, daily range): BP systolic 94–149; BP diastolic 52–87; PULSE 60–95; RESP 10–18; TEMP 97–98; O2SAT 90–97
[2024-04-21] MEDS ORDERED: zolpidem 5mg tablet PO PRN (01:05)
[2024-04-21] MEDS: traZODone 50mg tablet PO ONE (01:20)
[2024-04-21] MEDS: LidoCAINE 2% Topical Jelly 11mL syringe (UROJET) TOP ONE (05:35)
[2024-04-21 07:20] LABS: BASOPHILS # (AUTO) 0.1 X10'3 (0-0.2); BASOPHILS % (AUTO) 0.7 % (0-1); EOSINOPHILS % (AUTO) 0.2 % (0-6); HEMATOCRIT 38.2 % (42.0-52.0); HEMOGLOBIN 12.4 g/dl (14.0-17.9); LYMPHOCYTES # (AUTO) 2.3 X10'3 (1.1-4.8); LYMPHOCYTES % (AUTO) 23.8 % (21-51); MEAN CORPUSCULAR HEMOGLOBIN 30.2 PG (27.0-31.0); MEAN CORPUSCULAR HGB CONC 32.4 g/dL (33.0-36.5); MEAN CORPUSCULAR VOLUME 93.2 FL (78-98); MONOCYTES # (AUTO) 1.8 X10'3 (0-0.9); MONOCYTES % (AUTO) 18.4 % (2-12); NEUTROPHILS # (AUTO) 5.6 X10'3 (1.8-7.7); NEUTROPHILS % (AUTO) 56.9 % (42-75); PLATELET COUNT 201 X10'3 (140-440); RED CELL DISTRIBUTION WIDTH 13.7 % (11.5-14.5); WHITE BLOOD COUNT 9.8 X10'3 (4.5-11.0)
[2024-04-21 07:43] LABS: ALANINE AMINOTRANSFERASE 24 U/L (12-78); ALBUMIN 2.9 G/DL (3.4-5.0); ALBUMIN/GLOBULIN RATIO 0.8 (1.1-1.5); ALKALINE PHOSPHATASE 80 IU/L (46-116); ANION GAP 1 (8-16); ASPARTATE AMINO TRANSFERASE 54 U/L (10-37); BILIRUBIN,TOTAL 0.3 MG/DL (0.1-1.0); BLOOD UREA NITROGEN 13 MG/DL (7-18); CALCIUM 7.9 MG/DL (8.5-10.1); CHLORIDE 98 MMOL/L (99-107); CREATININE 0.65 MG/DL (0.60-1.10); GLUCOSE 226 MG/DL (70-104); POTASSIUM 4.4 MMOL/L (3.5-5.1); SODIUM 132 MMOL/L (135-145); TOTAL CARBON DIOXIDE 32.9 MMOL/L (24-32); TOTAL PROTEIN 6.5 G/DL (6.4-8.2); eCRCL 94 ML/MIN; eGFR > 90 ML/MIN
[2024-04-21] MEDS: pantoprazole 40mg Tablet.DR PO SCH (08:26)
[2024-04-21] MEDS: CefTRIAXone/D5W-Rocephin 1gm 50 ML IV SCH (08:39)
[2024-04-21] MEDS ORDERED: DULO20CA50 PO (09:53)
[2024-04-21] MEDS ORDERED: SENN-302 PO (10:05)
[2024-04-21] MEDS ORDERED: DOCU100C40 PO (10:06)
[2024-04-21] MEDS ORDERED: BISA-155 PO (10:07)
[2024-04-21] MEDS ORDERED: CETI10CA PO (10:08)
[2024-04-21] MEDS ORDERED: bisacodyl 5mg tablet.DR PO PRN (10:15)
[2024-04-21] MEDS: morphine ER 30mg tablet PO SCH (12:53)
[2024-04-21] MEDS: fentaNYL 75 MCG/hour patch.TD72 TD SCH (14:02)
[2024-04-21] MEDS: HYDROmorphone 2mg tablet PO SCH (20:00)
[2024-04-21] MEDS: docusate sod 100mg capsule PO SCH (20:30)
[2024-04-21] MEDS: sennosides/docusate sodium tablet PO SCH (20:31)
[2024-04-21] MEDS: traZODone 50mg tablet PO SCH (20:32)
[2024-04-21] MEDS: cetirizine 10mg tablet PO SCH (20:32)
[2024-04-21] MEDS: zolpidem 5mg tablet PO PRN (20:33)
[2024-04-21] MEDS: insulin glargine (Lantus) pen - multi-dose SQ SCH (20:48)
[2024-04-21] MEDS ORDERED: insulin glargine (Lantus) pen - multi-dose SQ SCH (21:00)
[2024-04-21] MEDS ORDERED: traZODone 50mg tablet PO SCH (21:00)
[2024-04-22] MEDS: DEXTROSE 15 GM of carb/4 tabs (each vial/BOTTLE has 4 tablets) PO PRN (00:48)
[2024-04-22 02:00] VITALS: BP 134/74; PULSE 89; RESP 19; TEMP 98; O2SAT 94
[2024-04-22 05:44] LABS: BASOPHILS # (AUTO) 0.1 X10'3 (0-0.2); BASOPHILS % (AUTO) 0.4 % (0-1); EOSINOPHILS % (AUTO) 0.3 % (0-6); HEMATOCRIT 39.3 % (42.0-52.0); HEMOGLOBIN 12.8 g/dl (14.0-17.9); LYMPHOCYTES # (AUTO) 2.7 X10'3 (1.1-4.8); LYMPHOCYTES % (AUTO) 19.9 % (21-51); MEAN CORPUSCULAR HEMOGLOBIN 30.2 PG (27.0-31.0); MEAN CORPUSCULAR HGB CONC 32.7 g/dL (33.0-36.5); MEAN CORPUSCULAR VOLUME 92.4 FL (78-98); MEAN PLATELET VOLUME 9.1 FL (7.4-10.4); MONOCYTES # (AUTO) 1.4 X10'3 (0-0.9); MONOCYTES % (AUTO) 10.5 % (2-12); NEUTROPHILS # (AUTO) 9.2 X10'3 (1.8-7.7); NEUTROPHILS % (AUTO) 68.9 % (42-75); PLATELET COUNT 227 X10'3 (140-440); RED BLOOD COUNT 4.25 X10'6 (4.70-6.10); RED CELL DISTRIBUTION WIDTH 13.5 % (11.5-14.5); WHITE BLOOD COUNT 13.3 X10'3 (4.5-11.0)
[2024-04-22 05:51] LABS: ALANINE AMINOTRANSFERASE 37 U/L (12-78); ALBUMIN 2.8 G/DL (3.4-5.0); ALBUMIN/GLOBULIN RATIO 0.7 (1.1-1.5); ALKALINE PHOSPHATASE 86 IU/L (46-116); ANION GAP 2 (8-16); ASPARTATE AMINO TRANSFERASE 64 U/L (10-37); BILIRUBIN,TOTAL 0.3 MG/DL (0.1-1.0); BLOOD UREA NITROGEN 11 MG/DL (7-18); CALCIUM 8.3 MG/DL (8.5-10.1); CHLORIDE 99 MMOL/L (99-107); CREATININE 0.61 MG/DL (0.60-1.10); GLUCOSE 105 MG/DL (70-104); MAGNESIUM 2.1 MG/DL (1.5-2.4); POTASSIUM 4.5 MMOL/L (3.5-5.1); SODIUM 131 MMOL/L (135-145); eCRCL 100 ML/MIN; eGFR > 90 ML/MIN
[2024-04-22 06:00] VITALS: BP 133/50; PULSE 87; RESP 14; TEMP 98.5; O2SAT 91
[2024-04-22 08:00] VITALS: RESP 14; O2SAT 91
[2024-04-22] MEDS ORDERED: CEFD300C3 PO (08:46)
[2024-04-22] MEDS: duloxetine 20mg capsule.DR PO SCH (09:10)
[2024-04-22] MEDS ORDERED: AMOX-580 PO (09:49)
[2024-04-22 11:00] VITALS: BP 110/67; PULSE 78; RESP 15; TEMP 98.1; O2SAT 96
[2024-04-22] MEDS: amox tr/potassium clavulanate 875/125mg TAB PO ONE (11:41)
[2024-04-22] MEDS: methylnaltrexone br 12mg/0.6ml inj***SubQ only SQ ONE (14:38)
== END 2024-04-22 15:07 | disposition home health service (06) | DRG 698 ==
LOC: ER 10:54 → ED HOLD 13:30 → PCU 3S 15:17
PROVIDERS: ADMIT Internal Medicine; ATTEND Internal Medicine
DX: T83.518A Infection and inflammatory reaction due to other urinary catheter, initial encounter (principal); G93.41 Metabolic encephalopathy; N39.0 Urinary tract infection, site not specified; N17.9 Acute kidney failure, unspecified; E11.65 Type 2 diabetes mellitus with hyperglycemia; E86.0 Dehydration; G89.4 Chronic pain syndrome; Y83.8 Other surgical procedures as the cause of abnormal reaction of the patient, or of later complication, without mention of misadventure at the time of the procedure; I25.10 Atherosclerotic heart disease of native coronary artery without angina pectoris; Z88.5 Allergy status to narcotic agent; Z88.8 Allergy status to other drugs, medicaments and biological substances; Z79.4 Long term (current) use of insulin; Z79.899 Other long term (current) drug therapy; Z90.49 Acquired absence of other specified parts of digestive tract; Y92.89 Other specified places as the place of occurrence of the external cause
CPT/HCPCS: 36415; 71045; 80048; 80053; 81001; 82948; 83605; 83735; 84100; 84145; 85007; 85025; 87040; 87077; 87088; 87186; 96365; 96375; 99285; A4314; A4340; A6446; G0378; J0131; J0696; J1644; J1815; J2212; J2270; J7030

== ENCOUNTER 2024-04-25 20:50 | Emergency (ER) | payer OTHER, MEDICARE ==
[~2024-04-25] VITALS: Ht 177.8 cm; Wt 62.0 kg
[~2024-04-25 20:50] MED LIST changes: +AMOX-580 PO; +BISA-155 PO; -CEPH500C2 PO; +CETI10CA PO; +DOCU100C40 PO; +DULO20CA50 PO; -DULO40CA2 PO; -NALO25TA4 PO; +SENN-302 PO; -SODI354S PO; -ZOF4T PO
[2024-04-25 21:26] LABS: BASOPHILS % (AUTO) 0.3 % (0-1); EOSINOPHILS % (AUTO) 0.5 % (0-6); HEMATOCRIT 41.2 % (42.0-52.0); HEMOGLOBIN 13.5 g/dl (14.0-17.9); LYMPHOCYTES # (AUTO) 1.8 X10'3 (1.1-4.8); LYMPHOCYTES % (AUTO) 24.6 % (21-51); MEAN CORPUSCULAR HGB CONC 32.8 g/dL (33.0-36.5); MEAN CORPUSCULAR VOLUME 91.6 FL (78-98); MONOCYTES # (AUTO) 1.3 X10'3 (0-0.9); MONOCYTES % (AUTO) 17.1 % (2-12); NEUTROPHILS # (AUTO) 4.3 X10'3 (1.8-7.7); NEUTROPHILS % (AUTO) 57.5 % (42-75); PLATELET COUNT 278 X10'3 (140-440); RED CELL DISTRIBUTION WIDTH 13.6 % (11.5-14.5); WHITE BLOOD COUNT 7.5 X10'3 (4.5-11.0)
[2024-04-25 21:43] LABS: ALANINE AMINOTRANSFERASE 33 U/L (12-78); ALBUMIN 3.6 G/DL (3.4-5.0); ALBUMIN/GLOBULIN RATIO 0.8 (1.1-1.5); ALKALINE PHOSPHATASE 96 IU/L (46-116); ANION GAP 6 (8-16); ASPARTATE AMINO TRANSFERASE 44 U/L (10-37); BILIRUBIN,TOTAL 0.3 MG/DL (0.1-1.0); BLOOD UREA NITROGEN 15 MG/DL (7-18); BUN/CREATININE RATIO 13.9 (10.0-20.0); CALCIUM 9.3 MG/DL (8.5-10.1); CHLORIDE 91 MMOL/L (99-107); CREATININE 1.08 MG/DL (0.60-1.10); GLUCOSE 332 MG/DL (70-104); LIPASE 11 U/L (16-77); SODIUM 130 MMOL/L (135-145); TOTAL CARBON DIOXIDE 32.8 MMOL/L (24-32); TOTAL PROTEIN 8.2 G/DL (6.4-8.2); eCRCL 57 ML/MIN; eGFR 68 ML/MIN
[2024-04-25 21:48] LABS: POTASSIUM 5.3 MMOL/L (3.5-5.1)
[2024-04-26] MEDS: methylnaltrexone br 12mg/0.6ml inj***SubQ only SQ ONE (00:30)
[2024-04-26 00:32] VITALS: BP 151/72; PULSE 98; RESP 16; TEMP 98.2; O2SAT 91
[2024-04-27] MEDS ORDERED: MAGN296S68 PO (22:23)
== END 2024-04-26 00:37 | disposition home or self-care (01) ==
LOC: ER 20:51
DX: K59.03 Drug induced constipation (principal); T40.2X5A Adverse effect of other opioids, initial encounter; E11.9 Type 2 diabetes mellitus without complications; G89.29 Other chronic pain; I25.10 Atherosclerotic heart disease of native coronary artery without angina pectoris; Z79.2 Long term (current) use of antibiotics; Z79.899 Other long term (current) drug therapy; Z79.4 Long term (current) use of insulin; Z90.49 Acquired absence of other specified parts of digestive tract; Z88.8 Allergy status to other drugs, medicaments and biological substances; Z88.5 Allergy status to narcotic agent; Y92.89 Other specified places as the place of occurrence of the external cause
CPT/HCPCS: 36415; 80053; 83690; 85025; 96372; 99283; J2212; 99285

== ENCOUNTER 2024-04-27 21:08 | Emergency (ER) | payer OTHER, MEDICARE ==
[~2024-04-27] VITALS: Ht 177.8 cm; Wt 62.0 kg
[2024-04-27 21:20] VITALS: BP 119/68; PULSE 102; O2SAT 91
[2024-04-27 21:45] VITALS: RESP 14
[2024-04-27 21:55] LABS: BASOPHILS % (AUTO) 0.3 % (0-1); EOSINOPHILS % (AUTO) 0.4 % (0-6); HEMATOCRIT 39.4 % (42.0-52.0); HEMOGLOBIN 13.2 g/dl (14.0-17.9); LYMPHOCYTES # (AUTO) 2.3 X10'3 (1.1-4.8); LYMPHOCYTES % (AUTO) 25.1 % (21-51); MEAN CORPUSCULAR HEMOGLOBIN 30.5 PG (27.0-31.0); MEAN CORPUSCULAR HGB CONC 33.4 g/dL (33.0-36.5); MEAN CORPUSCULAR VOLUME 91.2 FL (78-98); MEAN PLATELET VOLUME 8.4 FL (7.4-10.4); MONOCYTES # (AUTO) 2.1 X10'3 (0-0.9); MONOCYTES % (AUTO) 23.4 % (2-12); NEUTROPHILS # (AUTO) 4.6 X10'3 (1.8-7.7); NEUTROPHILS % (AUTO) 50.8 % (42-75); PLATELET COUNT 369 X10'3 (140-440); RED BLOOD COUNT 4.33 X10'6 (4.70-6.10); RED CELL DISTRIBUTION WIDTH 13.7 % (11.5-14.5); WHITE BLOOD COUNT 9.1 X10'3 (4.5-11.0)
[2024-04-27 21:57] LABS: BILIRUBIN,URINE NEGATIVE (Neg); CLARITY,URINE CLEAR (Clear); COLOR,URINE YELLOW (Yellow); GLUCOSE, URINE >=1000 mg/dl (Neg); KETONES,URINE NEGATIVE (Neg); LEUKOCYTE ESTERASE ,URINE NEGATIVE (Neg); NITRITES, URINE NEGATIVE (Neg); OCCULT BLOOD,URINE NEGATIVE (Neg); PH,URINE 6.5 (4.8-8.0); PROTEIN,URINE NEGATIVE (Neg); UROBILINOGEN,URINE 0.2 E.U/dL (0.2-1.0)
[2024-04-27] MEDS: methylnaltrexone br 12mg/0.6ml inj***SubQ only SQ ONE (22:02)
[2024-04-27 22:03] LABS: UA COLLECTION TYPE FOLEY CATH
[2024-04-27 22:05] LABS: BACTERIA,URINE NONE SEEN /HPF (Neg); MUCUS STRANDS FEW /LPF (Neg); RBC,URINE 0-2 /HPF (0-2); SQUAMOUS EPITHELIAL CELL,UR FEW /LPF (FEW); WBC,URINE 0-4 /HPF (0-4)
[2024-04-27 22:08] LABS: ALANINE AMINOTRANSFERASE 33 U/L (12-78); ALBUMIN 3.6 G/DL (3.4-5.0); ALBUMIN/GLOBULIN RATIO 0.8 (1.1-1.5); ALKALINE PHOSPHATASE 100 IU/L (46-116); ANION GAP 0 (8-16); ASPARTATE AMINO TRANSFERASE 40 U/L (10-37); BILIRUBIN,TOTAL 0.4 MG/DL (0.1-1.0); BLOOD UREA NITROGEN 22 MG/DL (7-18); CALCIUM 9.5 MG/DL (8.5-10.1); CHLORIDE 91 MMOL/L (99-107); GLUCOSE 382 MG/DL (70-104); POTASSIUM 5.5 MMOL/L (3.5-5.1); SODIUM 128 MMOL/L (135-145); TOTAL PROTEIN 8.2 G/DL (6.4-8.2); eCRCL 61 ML/MIN; eGFR 74 ML/MIN
[2024-04-27] MEDS ORDERED: MAGN296S68 PO (22:23)
[2024-04-27] MEDS: acetaminophen 325mg tablet PO ONE (22:50)
[2024-04-27 22:53] VITALS: TEMP 100.2
== END 2024-04-27 22:54 | disposition home or self-care (01) ==
LOC: ER 21:09
DX: K59.00 Constipation, unspecified (principal); E11.9 Type 2 diabetes mellitus without complications; G89.29 Other chronic pain; Z88.8 Allergy status to other drugs, medicaments and biological substances; Z79.2 Long term (current) use of antibiotics; Z79.899 Other long term (current) drug therapy; Z79.4 Long term (current) use of insulin; Z90.49 Acquired absence of other specified parts of digestive tract; Z98.890 Other specified postprocedural states; Z95.0 Presence of cardiac pacemaker
CPT/HCPCS: 80053; 81001; 85025; 96372; 99284; J2212

== ENCOUNTER 2024-04-30 16:15 | Emergency (ER) | payer OTHER, MEDICARE ==
[~2024-04-30] VITALS: Ht 177.8 cm; Wt 46.4 kg
[~2024-04-30 16:15] MED LIST changes: +MAGN296S68 PO
[2024-04-30 16:36] VITALS: BP 106/76; PULSE 101; RESP 14; O2SAT 95
[2024-04-30] MEDS ORDERED: SODI354S PO (17:10)
[2024-04-30] MEDS: methylnaltrexone br 12mg/0.6ml inj***SubQ only SQ ONE (17:18)
[2024-04-30 17:23] VITALS: TEMP 97.6
== END 2024-04-30 17:24 | disposition home or self-care (01) ==
LOC: ER 16:16
DX: K59.00 Constipation, unspecified (principal); E11.9 Type 2 diabetes mellitus without complications; G89.29 Other chronic pain; I25.10 Atherosclerotic heart disease of native coronary artery without angina pectoris; Z88.5 Allergy status to narcotic agent; Z88.8 Allergy status to other drugs, medicaments and biological substances; Z79.899 Other long term (current) drug therapy; Z90.49 Acquired absence of other specified parts of digestive tract
CPT/HCPCS: 96372; 99283; J2212

== ENCOUNTER 2024-05-02 07:45 | Emergency (ER) | payer OTHER, MEDICARE ==
[~2024-05-02] VITALS: Ht 177.8 cm; Wt 61.0 kg
[~2024-05-02 07:45] MED LIST changes: +SODI354S PO
[2024-05-02] MEDS: methylnaltrexone br 12mg/0.6ml inj***SubQ only SQ ONE (09:13)
[2024-05-02 09:18] VITALS: BP 152/99; PULSE 109; RESP 16; TEMP 97.2; O2SAT 96
== END 2024-05-02 09:19 | disposition home or self-care (01) ==
LOC: ER 07:47
DX: K59.00 Constipation, unspecified (principal); E11.9 Type 2 diabetes mellitus without complications; Z88.5 Allergy status to narcotic agent; Z88.8 Allergy status to other drugs, medicaments and biological substances; Z79.2 Long term (current) use of antibiotics; Z79.899 Other long term (current) drug therapy; Z90.49 Acquired absence of other specified parts of digestive tract
CPT/HCPCS: 96372; 99283; J2212

== ENCOUNTER 2024-05-02 14:43 | Emergency (ER) | payer OTHER, MEDICARE ==
[~2024-05-02] VITALS: Ht 177.8 cm; Wt 62.2 kg
[2024-05-02 14:52] VITALS: BP 113/71; PULSE 113; RESP 16; TEMP 99.4; O2SAT 93
== END 2024-05-02 17:52 | disposition left against medical advice (07) ==
LOC: ER 14:44
DX: K59.00 Constipation, unspecified (principal); Z53.21 Procedure and treatment not carried out due to patient leaving prior to being seen by health care provider

== ENCOUNTER 2024-05-03 20:38 | Emergency (ER) | payer OTHER, MEDICARE ==
[~2024-05-03] VITALS: Ht 172.7 cm; Wt 72.7 kg
[2024-05-03] MEDS: methylnaltrexone br 12mg/0.6ml inj***SubQ only SQ ONE (21:40)
[2024-05-03 21:45] VITALS: BP 130/84; PULSE 72; RESP 18; TEMP 98.7; O2SAT 96
== END 2024-05-03 21:47 | disposition home or self-care (01) ==
LOC: ER 20:39
DX: K59.03 Drug induced constipation (principal); T40.605A Adverse effect of unspecified narcotics, initial encounter; E11.9 Type 2 diabetes mellitus without complications; I25.10 Atherosclerotic heart disease of native coronary artery without angina pectoris; G89.29 Other chronic pain; Y92.89 Other specified places as the place of occurrence of the external cause; Z88.5 Allergy status to narcotic agent; Z79.899 Other long term (current) drug therapy; Z98.890 Other specified postprocedural states
CPT/HCPCS: 96372; 99283; J2212

== ENCOUNTER 2024-05-13 22:31 | Emergency (ER) | payer OTHER, MEDICARE ==
[~2024-05-13] VITALS: Ht 177.8 cm; Wt 64.0 kg
[~2024-05-13 22:31] MED LIST changes: -AMOX-580 PO
[2024-05-13 22:33] VITALS: BP 136/62; PULSE 85; RESP 16; TEMP 98; O2SAT 96
[2024-05-13] MEDS ORDERED: METH150T PO (22:47)
[2024-05-13] MEDS: methylnaltrexone br 12mg/0.6ml inj***SubQ only SQ ONE (22:51)
== END 2024-05-13 22:54 | disposition home or self-care (01) ==
LOC: ER 22:32
DX: K59.00 Constipation, unspecified (principal); E11.9 Type 2 diabetes mellitus without complications; G89.29 Other chronic pain; Z90.49 Acquired absence of other specified parts of digestive tract; Z98.890 Other specified postprocedural states; Z88.8 Allergy status to other drugs, medicaments and biological substances; Z79.4 Long term (current) use of insulin; Z79.899 Other long term (current) drug therapy
CPT/HCPCS: 96372; 99283; J2212

== ENCOUNTER 2024-06-02 21:00 | Emergency (ER) | payer OTHER, MEDICARE ==
[~2024-06-02] VITALS: Ht 177.8 cm; Wt 63.2 kg
[~2024-06-02 21:00] MED LIST changes: +METH150T PO
[2024-06-02] MEDS: methylnaltrexone br 12mg/0.6ml inj***SubQ only SQ ONE (21:51)
[2024-06-02 21:53] VITALS: BP 120/70; PULSE 88; RESP 17; TEMP 98.2; O2SAT 99
== END 2024-06-02 21:54 | disposition home or self-care (01) ==
LOC: ER 21:01
DX: K59.03 Drug induced constipation (principal); T40.2X5A Adverse effect of other opioids, initial encounter; I25.10 Atherosclerotic heart disease of native coronary artery without angina pectoris; E11.9 Type 2 diabetes mellitus without complications; G89.29 Other chronic pain; M54.9 Dorsalgia, unspecified; Z90.49 Acquired absence of other specified parts of digestive tract; Y92.89 Other specified places as the place of occurrence of the external cause; Z88.5 Allergy status to narcotic agent; Z88.8 Allergy status to other drugs, medicaments and biological substances; Z79.899 Other long term (current) drug therapy
CPT/HCPCS: 96372; 99283; J2212

== ENCOUNTER 2024-07-11 20:29 | Emergency (ER) | payer OTHER, MEDICARE | END 2024-07-11 22:14 | disposition left against medical advice (07) | LOC: ER 20:30 | DX: K59.00 Constipation, unspecified (principal); Z88.5 Allergy status to narcotic agent; Z88.8 Allergy status to other drugs, medicaments and biological substances; Z53.21 Procedure and treatment not carried out due to patient leaving prior to being seen by health care provider ==

== ENCOUNTER 2024-07-15 18:44 | Emergency (ER) | payer OTHER, MEDICARE ==
[~2024-07-15] VITALS: Ht 177.8 cm; Wt 63.6 kg
[2024-07-15 19:06] VITALS: BP 148/78; PULSE 84; RESP 17; O2SAT 98
[2024-07-15] MEDS: methylnaltrexone br 12mg/0.6ml inj***SubQ only SQ ONE (20:03)
[2024-07-15 20:32] VITALS: TEMP 98.5
== END 2024-07-15 20:33 | disposition left against medical advice (07) ==
LOC: ER 18:44
DX: K59.09 Other constipation (principal); E11.9 Type 2 diabetes mellitus without complications; I25.10 Atherosclerotic heart disease of native coronary artery without angina pectoris; Z88.5 Allergy status to narcotic agent; Z88.8 Allergy status to other drugs, medicaments and biological substances; Z90.49 Acquired absence of other specified parts of digestive tract; Z98.890 Other specified postprocedural states; Z53.21 Procedure and treatment not carried out due to patient leaving prior to being seen by health care provider
CPT/HCPCS: 96372; 99283; J2212

== ENCOUNTER 2024-08-02 10:22 | Emergency (ER) | payer OTHER, MEDICARE ==
[~2024-08-02] VITALS: Ht 177.8 cm; Wt 63.6 kg
[2024-08-02 10:23] VITALS: PULSE 86; RESP 16; O2SAT 95
[2024-08-02] MEDS: methylnaltrexone br 12mg/0.6ml inj***SubQ only SQ ONE (11:01)
[2024-08-02 11:05] VITALS: TEMP 97.7
== END 2024-08-02 11:07 | disposition home or self-care (01) ==
LOC: ER 10:23
DX: K59.03 Drug induced constipation (principal); T40.2X5A Adverse effect of other opioids, initial encounter; I25.10 Atherosclerotic heart disease of native coronary artery without angina pectoris; E11.9 Type 2 diabetes mellitus without complications; Z88.5 Allergy status to narcotic agent; Z88.8 Allergy status to other drugs, medicaments and biological substances; Z90.49 Acquired absence of other specified parts of digestive tract; Z98.890 Other specified postprocedural states; Z79.4 Long term (current) use of insulin; Y92.89 Other specified places as the place of occurrence of the external cause
CPT/HCPCS: 96372; 99283; J2212

== ENCOUNTER 2024-08-30 20:44 | Emergency (ER) | payer OTHER, MEDICARE ==
[~2024-08-30] VITALS: Ht 177.8 cm; Wt 63.6 kg
[2024-08-30] MEDS: methylnaltrexone br 12mg/0.6ml inj***SubQ only SQ ONE (23:12)
[2024-08-30 23:23] VITALS: BP 140/60; PULSE 90; RESP 16; TEMP 98.6; O2SAT 99
== END 2024-08-30 23:24 | disposition home or self-care (01) ==
LOC: ER 20:45
DX: K59.00 Constipation, unspecified (principal); E11.9 Type 2 diabetes mellitus without complications; I25.10 Atherosclerotic heart disease of native coronary artery without angina pectoris; G89.29 Other chronic pain; M54.9 Dorsalgia, unspecified; Z90.49 Acquired absence of other specified parts of digestive tract; Z88.5 Allergy status to narcotic agent; Z88.8 Allergy status to other drugs, medicaments and biological substances; Z79.4 Long term (current) use of insulin; Z79.899 Other long term (current) drug therapy
CPT/HCPCS: 96372; 99283; J2212

== ENCOUNTER 2024-09-18 10:37 | Emergency (ER) | payer OTHER, MEDICARE ==
[~2024-09-18] VITALS: Ht 177.8 cm; Wt 69.5 kg
[2024-09-18 10:43] VITALS: BP 152/89; PULSE 91; TEMP 97.8; O2SAT 96
[2024-09-18 11:12] VITALS: RESP 14
[2024-09-18] MEDS: methylnaltrexone br 12mg/0.6ml inj***SubQ only SQ ONE (11:18)
== END 2024-09-18 11:50 | disposition home or self-care (01) ==
LOC: ER 10:37
DX: K59.03 Drug induced constipation (principal); T40.605A Adverse effect of unspecified narcotics, initial encounter; E11.9 Type 2 diabetes mellitus without complications; I25.10 Atherosclerotic heart disease of native coronary artery without angina pectoris; G89.29 Other chronic pain; Z88.5 Allergy status to narcotic agent; Z88.8 Allergy status to other drugs, medicaments and biological substances; Z90.49 Acquired absence of other specified parts of digestive tract; Z79.899 Other long term (current) drug therapy; Y92.89 Other specified places as the place of occurrence of the external cause
CPT/HCPCS: 96372; 99284; J2212

== ENCOUNTER 2024-09-20 20:33 | Emergency (ER) | payer OTHER, MEDICARE ==
[~2024-09-20] VITALS: Ht 177.8 cm; Wt 63.6 kg
[2024-09-20] MEDS: methylnaltrexone br 12mg/0.6ml inj***SubQ only SQ STA (22:38)
[2024-09-20 22:51] VITALS: BP 110/89; PULSE 86; RESP 18; TEMP 98.9; O2SAT 99
== END 2024-09-20 22:52 | disposition home or self-care (01) ==
LOC: ER 20:34
DX: K59.00 Constipation, unspecified (principal); I25.10 Atherosclerotic heart disease of native coronary artery without angina pectoris; E11.9 Type 2 diabetes mellitus without complications; Z88.5 Allergy status to narcotic agent; Z88.8 Allergy status to other drugs, medicaments and biological substances; Z90.49 Acquired absence of other specified parts of digestive tract; Z98.890 Other specified postprocedural states
CPT/HCPCS: 96372; 99283; J2212

== ENCOUNTER 2024-10-04 20:22 | Emergency (ER) | payer OTHER, MEDICARE ==
[~2024-10-04] VITALS: Ht 177.8 cm; Wt 63.6 kg
[2024-10-04] MEDS: methylnaltrexone br 12mg/0.6ml inj***SubQ only SQ ONE (22:23)
[2024-10-04 22:35] VITALS: BP 132/48; PULSE 86; RESP 16; TEMP 98.6; O2SAT 99
== END 2024-10-04 22:36 | disposition home or self-care (01) ==
LOC: ER 20:23
DX: K59.00 Constipation, unspecified (principal); T40.2X5A Adverse effect of other opioids, initial encounter; E11.9 Type 2 diabetes mellitus without complications; I25.10 Atherosclerotic heart disease of native coronary artery without angina pectoris; Z88.5 Allergy status to narcotic agent; Z88.8 Allergy status to other drugs, medicaments and biological substances; Z90.49 Acquired absence of other specified parts of digestive tract; X58.XXXA Exposure to other specified factors, initial encounter; Y93.89 Activity, other specified; Y92.89 Other specified places as the place of occurrence of the external cause; Y99.8 Other external cause status
CPT/HCPCS: 74018; 96372; 99283; J2212

== ENCOUNTER 2024-10-07 19:14 | Emergency (ER) | payer OTHER, MEDICARE ==
[~2024-10-07] VITALS: Ht 177.8 cm; Wt 55.2 kg
[2024-10-07 19:18] VITALS: BP 168/98; PULSE 92; RESP 15; O2SAT 97
[2024-10-07] MEDS: methylnaltrexone br 12mg/0.6ml inj***SubQ only SQ ONE (19:48)
[2024-10-07 19:59] VITALS: TEMP 96.8
== END 2024-10-07 20:01 | disposition home or self-care (01) ==
LOC: ER 19:15
DX: K59.00 Constipation, unspecified (principal); T40.2X5A Adverse effect of other opioids, initial encounter; E11.9 Type 2 diabetes mellitus without complications; I25.10 Atherosclerotic heart disease of native coronary artery without angina pectoris; Z88.5 Allergy status to narcotic agent; Z88.8 Allergy status to other drugs, medicaments and biological substances; Z90.49 Acquired absence of other specified parts of digestive tract; X58.XXXA Exposure to other specified factors, initial encounter; Y93.89 Activity, other specified; Y92.89 Other specified places as the place of occurrence of the external cause; Y99.8 Other external cause status
CPT/HCPCS: 96372; 99283; J2212

== ENCOUNTER 2024-10-16 20:14 | Emergency (ER) | payer OTHER, MEDICARE ==
[~2024-10-16] VITALS: Ht 177.8 cm; Wt 63.6 kg
[2024-10-16 20:17] VITALS: BP 141/60; PULSE 88; RESP 16; TEMP 98.1; O2SAT 96
[2024-10-16] MEDS: methylnaltrexone br 12mg/0.6ml inj***SubQ only SQ ONE (21:26)
== END 2024-10-16 21:39 | disposition home or self-care (01) ==
LOC: ER 20:15
DX: K56.41 Fecal impaction (principal); E11.9 Type 2 diabetes mellitus without complications; I25.10 Atherosclerotic heart disease of native coronary artery without angina pectoris; Z88.5 Allergy status to narcotic agent; Z88.8 Allergy status to other drugs, medicaments and biological substances; Z90.49 Acquired absence of other specified parts of digestive tract
CPT/HCPCS: 96372; 99283; J2212

== ENCOUNTER 2024-10-31 20:13 | Emergency (ER) | payer OTHER, MEDICARE ==
[~2024-10-31] VITALS: Ht 177.8 cm; Wt 63.6 kg
[2024-10-31] MEDS: methylnaltrexone br 12mg/0.6ml inj***SubQ only SQ ONE (20:45)
[2024-10-31 20:50] VITALS: BP 125/75; PULSE 80; RESP 18; TEMP 98.6; O2SAT 99
== END 2024-10-31 20:51 | disposition home or self-care (01) ==
LOC: ER 20:13
DX: K59.03 Drug induced constipation (principal); T40.2X5A Adverse effect of other opioids, initial encounter; E11.9 Type 2 diabetes mellitus without complications; I25.10 Atherosclerotic heart disease of native coronary artery without angina pectoris; Z88.5 Allergy status to narcotic agent; Z90.49 Acquired absence of other specified parts of digestive tract; Y92.89 Other specified places as the place of occurrence of the external cause
CPT/HCPCS: 96372; 99284; J2212

== ENCOUNTER 2024-11-19 17:42 | Emergency (ER) | payer OTHER, MEDICARE ==
[~2024-11-19] VITALS: Ht 177.8 cm; Wt 54.2 kg
[2024-11-19 17:44] VITALS: BP 111/78; PULSE 83; RESP 15; TEMP 97.4; O2SAT 96
--- NOTE | 2024-11-19 17:48 | Physician Documentation ---
History of Present Illness ~ Stated Complaint: IMPACTED Time Seen by MD: 17:45 OK to notify your PCP?: Yes Primary Medical Doctor: ANUP Source: patient Mode of Arrival: POV Exam Limitations: no limitations HPI This is a 69-year-old male who I see frequently for opiate induced constipation. The patient takes pain medication for chronic back pain and gets very constipated. He frequently comes with the ER for a shot of Relistor after which he was discharged home. The patient was denies any new or worsening symptoms today. Medication Reconciliation Allergies: Coded Allergies: codeine (Verified Allergy, Unknown, RED BLOTCHES, NAUSEA, 10/07/24) haloperidol (Verified Allergy, Unknown, 10/07/24) Scheduled Bisacodyl (Dulcolax), 2 TAB PO UD, (Reported) Cetirizine Hcl (Zyrtec), 10 MG PO HS, (Reported) Docusate Sodium (Docusate Sodium), 2 CAP PO BID, (Reported) Duloxetine Hcl (Cymbalta), 4 CAP PO DAILY, (Reported) Fentanyl (Fentanyl), 75 MCG TD Q72H, (Reported) Hydromorphone HCl (Hydromorphone HCl), 1 TAB PO BID, (Reported) Insulin Lispro (Humalog), 1 UNITS SQ SLIDING SCALE, (Reported) Magnesium Citrate (MAGNESIUM CITRATE oral solution), 296 ML PO ONCE Methylnaltrexone [place] (Relistor), 3 TAB PO PRN Morphine Sulfate (Morphine Sulfate ER), 1 CAP PO TID, (Reported) Sennosides/Docusate Sodium (Senna Plus 8.6-50 mg Tablet), 2 TAB PO HS, (Reported) Sodium,Potassium,&Mag Sulfates (Suprep Bowel Prep Kit), 1 EA PO UD Trazodone HCl (Trazodone HCl), 1 TAB PO HS, (Reported) Scheduled PRN Zolpidem Tartrate* (Ambien*), 10 MG PO HS PRN for sleep, (Reported) Past Medical History Past Medical History: Constipation, Pancreatitis, Diabetes, Chronic Pain Past Surgical History: abdominal surgery, cholecystectomy Patient History: (CAD) Coronary arteriosclerosis FATHER Paternal Grandfather, Onset:Unknown FH: diabetes mellitus Paternal Grandfather Pacemaker MOTHER Alcohol Use: Rarely Drug Use: none Lives In: Home Physical Exam Pulse Oximetry Reflects: adequate oxygenation General Appearance: alert, WD/WN, no apparent distress Gastrointestinal To inspection of the abdomen no obvious distention. He was not tender to palpation x4 quadrants. Normoactive bowel sounds x4 quadrants. He was hypoactive bowel sounds x4 quads. No rigidity rebound or guarding. Negative Eubanks's sign. Negative for any point tenderness Progress Results/Orders Reviewed/noted all lab results: Yes Medical Decision Making Findings The patient was received with a shot of Relistor and was discharged home. Additional Comments Constipation. Opiate induced constipation. Chronic constipation Departure Disposition: HOME / SELF CARE / HOMELESS Impression: Primary Impression: Constipation due to opioid therapy Condition: Stable Discharge Instructions: Chronic Constipation Additional Instructions: Follow up with the primary care physician for recheck in the next one or two days. Return if you need another shot of Relistor. Referrals: NO PRIMARY CARE PROVIDER (PCP) Signature Scribe Signature: No scribe Attestation: The note accurately reflects work and decisions made by me.Anita GREEN 11/19/24 17:48 ANITA LEIGH Nov 19, 2024 17:48
[2024-11-19] MEDS: methylnaltrexone br 12mg/0.6ml inj***SubQ only SQ ONE (18:11)
== END 2024-11-19 18:22 | disposition home or self-care (01) ==
LOC: ER 17:43
DX: K59.03 Drug induced constipation (principal); T40.2X5A Adverse effect of other opioids, initial encounter; E11.9 Type 2 diabetes mellitus without complications; I25.10 Atherosclerotic heart disease of native coronary artery without angina pectoris; Z88.5 Allergy status to narcotic agent; Z88.8 Allergy status to other drugs, medicaments and biological substances; Z90.49 Acquired absence of other specified parts of digestive tract; Y92.89 Other specified places as the place of occurrence of the external cause
CPT/HCPCS: 96372; 99283; J2212

== ENCOUNTER 2024-11-22 17:01 | Emergency (ER) | payer OTHER, MEDICARE ==
[~2024-11-22] VITALS: Ht 175.3 cm; Wt 67.5 kg
[2024-11-22 17:09] VITALS: BP 125/54; PULSE 92; RESP 18; TEMP 97.6; O2SAT 95
--- NOTE | 2024-11-22 17:41 | Physician Documentation ---
History of Present Illness ~ Chief Complaint: Constipation Stated Complaint: "IMPACTED" Time Seen by MD: 17:37 OK to notify your PCP?: Yes Primary Medical Doctor: ANUP Source: patient Mode of Arrival: POV Exam Limitations: no limitations HPI This is a 69-year-old male who I know well who comes to ER frequently for chronic opiate induced constipation. The patient has a history of chronic back pain and takes narcotic pain medication for pain relief. You comes in frequently for a shot of Relistor. He denies any new or worsening symptoms. Medication Reconciliation Allergies: Coded Allergies: codeine (Verified Allergy, Unknown, RED BLOTCHES, NAUSEA, 11/22/24) haloperidol (Verified Allergy, Unknown, 11/22/24) Scheduled Bisacodyl (Dulcolax), 2 TAB PO UD, (Reported) Cetirizine Hcl (Zyrtec), 10 MG PO HS, (Reported) Docusate Sodium (Docusate Sodium), 2 CAP PO BID, (Reported) Duloxetine Hcl (Cymbalta), 4 CAP PO DAILY, (Reported) Fentanyl (Fentanyl), 75 MCG TD Q72H, (Reported) Hydromorphone HCl (Hydromorphone HCl), 1 TAB PO BID, (Reported) Insulin Lispro (Humalog), 1 UNITS SQ SLIDING SCALE, (Reported) Magnesium Citrate (MAGNESIUM CITRATE oral solution), 296 ML PO ONCE Methylnaltrexone [place] (Relistor), 3 TAB PO PRN Morphine Sulfate (Morphine Sulfate ER), 1 CAP PO TID, (Reported) Sennosides/Docusate Sodium (Senna Plus 8.6-50 mg Tablet), 2 TAB PO HS, (Reported) Sodium,Potassium,&Mag Sulfates (Suprep Bowel Prep Kit), 1 EA PO UD Trazodone HCl (Trazodone HCl), 1 TAB PO HS, (Reported) Scheduled PRN Zolpidem Tartrate* (Ambien*), 10 MG PO HS PRN for sleep, (Reported) Past Medical History Past Medical History: Constipation, Pancreatitis, Diabetes, Chronic Pain Past Surgical History: abdominal surgery, cholecystectomy Patient History: (CAD) Coronary arteriosclerosis FATHER Paternal Grandfather, Onset:Unknown FH: diabetes mellitus Paternal Grandfather Pacemaker MOTHER Alcohol Use: Rarely Drug Use: none Lives In: Home Physical Exam Vital Signs: Temperature: 97.6, Source: Temporal, Heart Rate: 92, Respiratory Rate: 18, BP: 125/54, Pulse Oximetry: 95, Weight: 67.550 Pulse Oximetry Reflects: adequate oxygenation General Appearance: alert, WD/WN, no apparent distress Respiratory: no respiratory distress Chest: no accessory muscle use Gastrointestinal To inspection of the abdomen no obvious distention. No tenderness to palpation x4 quadrants. Hypoactive bowel sounds x4 quadrants. No rigidity, rebound or guarding. Progress Results/Orders Reviewed/noted all lab results: Yes Results/Orders Orders - ANITA LEIGH Methylnaltrexone Br Inj (Relistor Inj (11/22/24 17:40) Vital Signs 11/22/24 17:09 Temp 97.6 Pulse 92 Resp 18 B/P (MAP) 125/54 Pulse Ox 95 Medical Decision Making Findings The patient was received his 12 mg subcu injection of Relistor and was discharged home. He was told to follow up with the primary care physician and[facility]or [facility] in the next couple of days. Return to the ER for any worsening or concerning symptoms. Additional Comments Chronic opiate induced constipation. Chronic constipation. Low clinical suspicion for small-bowel obstruction Departure Disposition: HOME / SELF CARE / HOMELESS Impression: Primary Impression: Constipation due to opioid therapy Discharge Instructions: Chronic Constipation Additional Instructions: Continue with home stool softeners and laxatives. Drink lots of water and eat plenty of fruits and vegetables. Follow up with the primary care physician and with the [facility] for recheck in the next one or two days and return to the ER for any worsening or concerning symptoms Referrals: NO PRIMARY CARE PROVIDER (PCP) Signature Scribe Signature: No scribe Attestation: The note accurately reflects work and decisions made by me.Anita GREEN 11/22/24 17:41 ANITA LEIGH Nov 22, 2024 17:41
[2024-11-22] MEDS: methylnaltrexone br 12mg/0.6ml inj***SubQ only SQ ONE (18:06)
== END 2024-11-22 18:11 | disposition home or self-care (01) ==
LOC: ER 17:02
DX: K59.03 Drug induced constipation (principal); T40.2X5A Adverse effect of other opioids, initial encounter; E11.9 Type 2 diabetes mellitus without complications; I25.10 Atherosclerotic heart disease of native coronary artery without angina pectoris; Z88.5 Allergy status to narcotic agent; Z88.8 Allergy status to other drugs, medicaments and biological substances; Z90.49 Acquired absence of other specified parts of digestive tract
CPT/HCPCS: 96372; 99283; J2212

== ENCOUNTER 2024-12-04 21:21 | Emergency (ER) | payer OTHER, MEDICARE ==
[~2024-12-04] VITALS: Ht 167.6 cm; Wt 66.0 kg
[2024-12-04 21:22] VITALS: BP 128/75; PULSE 87; RESP 16; TEMP 98.2; O2SAT 97
--- NOTE | 2024-12-04 22:34 | Physician Documentation ---
History of Present Illness ~ Chief Complaint: Constipation Stated Complaint: CONSTIPATED Time Seen by MD: 22:31 OK to notify your PCP?: Yes Primary Medical Doctor: ANUP Source: patient Exam Limitations: no limitations ARDEN Dempsey is a 69-year-old male presenting with constipation for the past 4 days. He tried using his normal [id number] medications for relief but was unsuccessful. He is requesting a Relistor injection as he gets those frequently from us due to his prescription opiate use. Denies any nausea vomiting or diarrhea. Medication Reconciliation Allergies: Coded Allergies: codeine (Verified Allergy, Unknown, RED BLOTCHES, NAUSEA, 11/22/24) haloperidol (Verified Allergy, Unknown, 11/22/24) Scheduled Bisacodyl (Dulcolax), 2 TAB PO UD, (Reported) Cetirizine Hcl (Zyrtec), 10 MG PO HS, (Reported) Docusate Sodium (Docusate Sodium), 2 CAP PO BID, (Reported) Duloxetine Hcl (Cymbalta), 4 CAP PO DAILY, (Reported) Fentanyl (Fentanyl), 75 MCG TD Q72H, (Reported) Hydromorphone HCl (Hydromorphone HCl), 1 TAB PO BID, (Reported) Insulin Lispro (Humalog), 1 UNITS SQ SLIDING SCALE, (Reported) Magnesium Citrate (MAGNESIUM CITRATE oral solution), 296 ML PO ONCE Methylnaltrexone [place] (Relistor), 3 TAB PO PRN Morphine Sulfate (Morphine Sulfate ER), 1 CAP PO TID, (Reported) Sennosides/Docusate Sodium (Senna Plus 8.6-50 mg Tablet), 2 TAB PO HS, (Reported) Sodium,Potassium,&Mag Sulfates (Suprep Bowel Prep Kit), 1 EA PO UD Trazodone HCl (Trazodone HCl), 1 TAB PO HS, (Reported) Scheduled PRN Zolpidem Tartrate* (Ambien*), 10 MG PO HS PRN for sleep, (Reported) Past Medical History Past Medical History: Constipation, Pancreatitis, Diabetes, Chronic Pain Past Surgical History: abdominal surgery, cholecystectomy Patient History: (CAD) Coronary arteriosclerosis FATHER Paternal Grandfather, Onset:Unknown FH: diabetes mellitus Paternal Grandfather Pacemaker MOTHER Alcohol Use: Rarely Drug Use: none Lives In: Home Review of Systems All Other Systems at this time: Reviewed and Negative Physical Exam Vital Signs: RN Vital Signs have been reviewed: Yes, Temperature: 98.2, Source: Temporal, Heart Rate: 87, Respiratory Rate: 16, BP: 128/75, Pulse Oximetry: 97, Weight: 65.980 Oxygen Flow Rate: 0 Pulse Oximetry Reflects: adequate oxygenation Physical Exam General: Alert, no apparent distress. HEENT: PERRL, EOMI, no injection, moist mucous membranes. Neck: Full range of motion. Respiratory: Lungs clear, no respiratory distress. Chest: No accessory muscle use. Cardiovascular: Regular rate and rhythm, no murmurs. Gastrointestinal: Soft, nontender, nondistended. Bowels sounds present. Extremities: Normal range of motion, no deformity. Neurologic: Oriented x4. Psychiatric: Normal mood and affect. Skin: Normal color, warm and dry. No edema, no ecchymosis. Progress Results/Orders Results/Orders Completed Orders - LEENA RENAE [employer] Methylnaltrexone Br Inj (Relistor Inj (12/04/24 22:35) Medications Received in ER Medications (Trade) Dose Ordered Sig/Ant Route PRN Reason Start Time Stop Time Status Last Admin Dose Admin (Relistor inj SubQ only) 12 mg ONCE ONCE SQ 12/04/24 22:35 12/04/24 22:38 DC 12/04/24 22:54 12 MG Vital Signs 12/04/24 21:22 Temp 98.2 Pulse 87 Resp 16 B/P (MAP) 128/75 Pulse Ox 97 O2 Flow Rate 0 Medical Decision Making Findings Ke is a 69-year-old male presenting with constipation for the past 4 days. He tried using his normal [id number]-[id number] medications for relief but was unsuccessful. He is requesting a Relistor injection as he gets those frequently from us due to his prescription opiate use, this was ordered and administered in the department Denies any nausea vomiting or diarrhea. His physical exam is normal and he does not have any abdominal pain with palpation, distention, rebound tenderness or guarding. He was happy to receive his injection and was educated to follow up with his primary care provider and return back here for any new or worsening symptoms. Diff Dx Pain:Considerations: Include: AAA, Aortic dissection, Bowel obstruction, Gastritis, Ischemic bowel, Mass Departure Disposition: HOME / SELF CARE / HOMELESS Impression: Primary Impression: Constipation Condition: Stable Discharge Instructions: Constipation, Adult Additional Instructions: FOLLOW UP WITH PRIMARY CARE PROVIDER IN 3 DAYS. RETURN HERE WITH ANY NEW OR WORSENING SYMPTOMS. Referrals: NO PRIMARY CARE PROVIDER (PCP) Education Educated: Patient Educated regarding: diagnosis, treatment, prognosis, need for follow up Signature Scribe Signature: . Attestation: Scribed for Leena Renaep by Leena Damon NP . 12/04/24 23:09 LEENA RENAE [employer] December 04, 2024 22:34
[2024-12-04] MEDS: methylnaltrexone br 12mg/0.6ml inj***SubQ only SQ ONE (22:54)
== END 2024-12-04 22:59 | disposition home or self-care (01) ==
LOC: ER 21:21
DX: K59.00 Constipation, unspecified (principal); E11.9 Type 2 diabetes mellitus without complications; I25.10 Atherosclerotic heart disease of native coronary artery without angina pectoris; Z88.5 Allergy status to narcotic agent; Z88.8 Allergy status to other drugs, medicaments and biological substances; Z90.49 Acquired absence of other specified parts of digestive tract
CPT/HCPCS: 96372; 99283; J2212

== ENCOUNTER 2024-12-09 18:52 | Emergency (ER) | payer OTHER, MEDICARE ==
[~2024-12-09] VITALS: Ht 177.8 cm; Wt 63.6 kg
[2024-12-09 18:56] VITALS: BP 133/74; PULSE 74; RESP 17; TEMP 98.2; O2SAT 98
[2024-12-09] MEDS: methylnaltrexone br 12mg/0.6ml inj***SubQ only SQ ONE (20:45)
--- NOTE | 2024-12-09 23:56 | Physician Documentation ---
HPI ~ General Chief Complaint: Medication Request Stated Complaint: IMPACTED Time Seen by MD: 20:18 Primary Medical Doctor: ANUP History of Present Illness HPI Comments Patient is seen today with complaints of opioid induced constipation. Patient states the only thing that seems to help his constipation is Relistor. Patient admits to taking morphine 180 mg per day along with fentanyl 75 mcg per day. Patient denies any significant abdominal pain but states he has not had a bowel movement for 3-4 days. He has no other concern or complaint at this time. Medication Reconciliation Allergies: Coded Allergies: codeine (Verified Allergy, Unknown, RED BLOTCHES, NAUSEA, 12/09/24) haloperidol (Verified Allergy, Unknown, 12/09/24) Scheduled Bisacodyl (Dulcolax), 2 TAB PO UD, (Reported) Cetirizine Hcl (Zyrtec), 10 MG PO HS, (Reported) Docusate Sodium (Docusate Sodium), 2 CAP PO BID, (Reported) Duloxetine Hcl (Cymbalta), 4 CAP PO DAILY, (Reported) Fentanyl (Fentanyl), 75 MCG TD Q72H, (Reported) Hydromorphone HCl (Hydromorphone HCl), 1 TAB PO BID, (Reported) Insulin Lispro (Humalog), 1 UNITS SQ SLIDING SCALE, (Reported) Magnesium Citrate (MAGNESIUM CITRATE oral solution), 296 ML PO ONCE Methylnaltrexone [place] (Relistor), 3 TAB PO PRN Morphine Sulfate (Morphine Sulfate ER), 1 CAP PO TID, (Reported) Sennosides/Docusate Sodium (Senna Plus 8.6-50 mg Tablet), 2 TAB PO HS, (Reported) Sodium,Potassium,&Mag Sulfates (Suprep Bowel Prep Kit), 1 EA PO UD Trazodone HCl (Trazodone HCl), 1 TAB PO HS, (Reported) Scheduled PRN Zolpidem Tartrate* (Ambien*), 10 MG PO HS PRN for sleep, (Reported) Past Medical History Past Medical History: Constipation, Pancreatitis, Diabetes, Chronic Pain Past Surgical History: abdominal surgery, cholecystectomy Patient History: (CAD) Coronary arteriosclerosis FATHER Paternal Grandfather, Onset:Unknown FH: diabetes mellitus Paternal Grandfather Pacemaker MOTHER Alcohol Use: Rarely Drug Use: none Lives In: Home Review of Systems Constitutional: Denies: chills, fever, weakness Eyes: Denies: pain, blurred vision ENT: Denies: ear pain, nose pain, throat pain, mouth pain Respiratory: Denies: cough, shortness of breath Cardiovascular: Denies: chest pain, palpitations Gastrointestinal: Denies: abdominal pain, nausea, vomiting Genitourinary: Denies: burning, dysuria Male Genitalia: Denies: penile discharge, testicular pain Neurological: Denies: headache, dizziness Musculoskeletal: Denies: pain, swelling Integumentary: Denies: rash, lesions Allergic/Immunologic: Denies: hives, itching Hematologic/Lymphatic: Denies: no symptoms reported Psychiatric: Denies: depression, anxiety Physical Exam Physical Exam Vital Signs: Temperature: 98.2, Heart Rate: 74, Respiratory Rate: 17, BP: 133/74, Pulse Oximetry: 98, Weight: 63.640 Physical Exam General: Awake and Alert, no acute distress. HEENT: Conjunctiva pink, Sclera clear, Mucus Membranes moist. Neck: Supple without masses and tenderness. Resp: Unlabored. Lungs clear to auscultation bilaterally. Heart: Regular Rate and rhythm, normal S1 and S2 without murmur, rub or gallop. Abdomen: Soft and non tender no organomegaly Extremities: No cyanosis,clubbing or edema. Skin: Warm and Dry. Progress Results/Orders Results/Orders Completed Orders - SUNNY MORALES Methylnaltrexone Br Inj (Relistor Inj (12/09/24 20:35) Medications Received in ER Medications (Trade) Dose Ordered Sig/Ant Route PRN Reason Start Time Stop Time Status Last Admin Dose Admin (Relistor inj SubQ only) 12 mg ONCE ONCE SQ 12/09/24 20:35 12/09/24 20:41 DC 12/09/24 20:45 12 MG Vital Signs 12/09/24 18:56 Temp 98.2 Pulse 74 Resp 17 B/P (MAP) 133/74 Pulse Ox 98 Medical Decision Making Findings Patient is seen today with complaints of opioid induced constipation. Patient states the only thing that seems to help his constipation is Relistor. Patient admits to taking morphine 180 mg per day along with fentanyl 75 mcg per day. Patient denies any significant abdominal pain but states he has not had a bowel movement for 3-4 days. He has no other concern or complaint at this time. Patient was given Relistor subcu in the ED today one dose. Patient will continue senna and Colace and MiraLax at home as needed for constipation. Patient will return to ED with any worsening, concerning or changing symptoms. Departure Disposition: 01 HOME / SELF CARE / HOMELESS Impression: Primary Impression: Chronic constipation Condition: Improved Discharge Instructions: Medicine Refill at the Emergency Department Additional Instructions: Patient was given Relistor subcu in the ED today one dose. Patient will continue senna and Colace and MiraLax at home as needed for constipation. Patient will return to ED with any worsening, concerning or changing symptoms. Referrals: NO PRIMARY CARE PROVIDER (PCP) Signature Scribe Signature: No scribe Attestation: No scribe SUNNY MORALES PAC December 09, 2024 23:56
== END 2024-12-09 20:51 | disposition home or self-care (01) ==
LOC: ER 18:53
DX: K59.09 Other constipation (principal); E11.9 Type 2 diabetes mellitus without complications; I25.10 Atherosclerotic heart disease of native coronary artery without angina pectoris; Z88.5 Allergy status to narcotic agent; Z88.8 Allergy status to other drugs, medicaments and biological substances; Z90.49 Acquired absence of other specified parts of digestive tract
CPT/HCPCS: 96372; 99283; J2212

== ENCOUNTER 2024-12-14 21:07 | Emergency (ER) | payer OTHER, MEDICARE ==
[~2024-12-14] VITALS: Ht 177.8 cm; Wt 47.9 kg
[2024-12-14 21:38] VITALS: BP 116/89; PULSE 90; RESP 15; O2SAT 98
--- NOTE | 2024-12-14 22:30 | RADIOLOGY REPORT ---
Exam: DI ABDOMEN,SINGLE VIEW(KUB) Indication: abdominal pain Comparison: DI ABDOMEN,SINGLE VIEW(KUB) on DOS: 10/04/24 Technique: Upright frontal radiographs of the abdomen Findings / Impression: No abnormally dilated loops of large or small bowel noted. Large amount of stool present throughout t he large bowel. No abnormal calcific density noted. Small right-sided pleural effusion and atelectasis/consolidation at right lung base. No significant change compared to the prior radiographs from September 2024.
--- NOTE | 2024-12-15 00:26 | Physician Documentation ---
History of Present Illness ~ Chief Complaint: Constipation Stated Complaint: CONSTIPATION Time Seen by MD: 00:22 Primary Medical Doctor: [facility] Patient here with constipation requested Relistor. He has been here many times for this. No significant abdominal pain or fevers. Medication Reconciliation Allergies: Coded Allergies: codeine (Verified Allergy, Unknown, RED BLOTCHES, NAUSEA, 12/14/24) haloperidol (Verified Allergy, Unknown, 12/14/24) Scheduled Bisacodyl (Dulcolax), 2 TAB PO UD, (Reported) Cetirizine Hcl (Zyrtec), 10 MG PO HS, (Reported) Docusate Sodium (Docusate Sodium), 2 CAP PO BID, (Reported) Duloxetine Hcl (Cymbalta), 4 CAP PO DAILY, (Reported) Fentanyl (Fentanyl), 75 MCG TD Q72H, (Reported) Hydromorphone HCl (Hydromorphone HCl), 1 TAB PO BID, (Reported) Insulin Lispro (Humalog), 1 UNITS SQ SLIDING SCALE, (Reported) Magnesium Citrate (MAGNESIUM CITRATE oral solution), 296 ML PO ONCE Methylnaltrexone [place] (Relistor), 3 TAB PO PRN Morphine Sulfate (Morphine Sulfate ER), 1 CAP PO TID, (Reported) Sennosides/Docusate Sodium (Senna Plus 8.6-50 mg Tablet), 2 TAB PO HS, (Reported) Sodium,Potassium,&Mag Sulfates (Suprep Bowel Prep Kit), 1 EA PO UD Trazodone HCl (Trazodone HCl), 1 TAB PO HS, (Reported) Scheduled PRN Zolpidem Tartrate* (Ambien*), 10 MG PO HS PRN for sleep, (Reported) Past Medical History Past Medical History: Constipation, Pancreatitis, Diabetes, Chronic Pain Past Surgical History: abdominal surgery, cholecystectomy Patient History: (CAD) Coronary arteriosclerosis FATHER Paternal Grandfather, Onset:Unknown FH: diabetes mellitus Paternal Grandfather Pacemaker MOTHER Alcohol Use: Rarely Drug Use: none Lives In: Home Review of Systems ROS All review of systems negative except as per HPI Physical Exam Vital Signs: Temperature: 97.6, Source: Temporal, Heart Rate: 90, Respiratory Rate: 15, BP: 116/89, Pulse Oximetry: 98, Weight: 47.900 Physical Exam General: Patient is awake, alert, oriented x4 in no acute distress Head: Normocephalic and atraumatic. Eyes: Conjunctival normal. EOMI. PERRL. ENT: Mucous membranes moist. Neck: Supple, trachea is midline. Chest: Clear to auscultation bilaterally without rales, rhonchi, or wheezes. There is no accessory muscle use or retractions. Cardiac: RRR without murmurs, gallops, or rubs. Abd: Soft, nondistended, nontender, with normoactive bowel sounds. No guarding, rebound, or rigidity. Progress Results/Orders Results/Orders Completed Orders - AUGUST LOYOLA MD Methylnaltrexone Br Inj (Relistor Inj (12/15/24 00:15) Vital Signs 12/14/24 21:38 Temp 97.6 Pulse 90 Resp 15 B/P (MAP) 116/89 Pulse Ox 98 Medical Decision Making Findings Patient presents to the emergency room chief complaint of constipation. Differentials include but are not limited to constipation, small-bowel obstruction, diverticulitis, appendicitis. Given patient's history and reassuring x-ray I do not feel additional CT scan or labs are necessary. We will provide him with Relistor shot. The need to increase constipation me dications discussed Departure Disposition: HOME / SELF CARE / HOMELESS Impression: Primary Impression: Constipation Condition: Stable Discharge Instructions: Constipation, Adult Additional Instructions: Increase MiraLax as needed for constipation. Must drink with plenty of water Referrals: NO PRIMARY CARE PROVIDER (PCP) Education Educated: Patient Educated regarding: treatment Signature Scribe Signature: No scribe Attestation: The note accurately reflects work and decisions made by me.August Loyola MD 12/15/24 00:26 AUGUST LOYOLA MD December 15, 2024 00:26
[2024-12-15 00:28] VITALS: TEMP 97.6
[2024-12-15] MEDS: methylnaltrexone br 12mg/0.6ml inj***SubQ only SQ ONE (00:35)
== END 2024-12-15 00:36 | disposition home or self-care (01) ==
LOC: ER 21:08
DX: K59.00 Constipation, unspecified (principal); E11.9 Type 2 diabetes mellitus without complications; I25.10 Atherosclerotic heart disease of native coronary artery without angina pectoris; Z88.5 Allergy status to narcotic agent; Z88.8 Allergy status to other drugs, medicaments and biological substances; Z90.49 Acquired absence of other specified parts of digestive tract
CPT/HCPCS: 74018; 96372; 99283; J2212

== ENCOUNTER 2025-04-29 21:37 | Emergency (ER) | payer OTHER, MEDICARE ==
[~2025-04-29] VITALS: Ht 177.8 cm; Wt 47.0 kg
[2025-04-29 21:40] VITALS: BP 141/55; PULSE 101; RESP 16; O2SAT 95
[2025-04-29] MEDS ORDERED: TRAM50TA2 PO (22:46)
[2025-04-29] MEDS ORDERED: POLY119P2 PO (22:46)
--- NOTE | 2025-04-29 22:46 | Physician Documentation ---
History of Present Illness ~ Chief Complaint: Constipation Stated Complaint: UNABLE TO URINATE Time Seen by MD: 22:26 Primary Medical Doctor: [facility] Source: patient Mode of Arrival: POV Exam Limitations: no limitations HPI 69-year-old male concerned about constipation and having a bowel movement since he fell and broke ribs on he was evaluated at the [facility] and given lidocaine patches and diclofenac cream. Patient states that he can not have a bowel movement because it is painful to bear down. Patient is asking for pain medications to help with the pain to make it easier for him to have a bowel movement. Patient's last bowel movement was 3 days ago. Medication Reconciliation Allergies: Coded Allergies: codeine (Verified Allergy, Unknown, RED BLOTCHES, NAUSEA, 12/14/24) haloperidol (Verified Allergy, Unknown, 12/14/24) Scheduled Bisacodyl (Dulcolax), 2 TAB PO UD, (Reported) Cetirizine Hcl (Zyrtec), 10 MG PO HS, (Reported) Docusate Sodium (Docusate Sodium), 2 CAP PO BID, (Reported) Duloxetine Hcl (Cymbalta), 4 CAP PO DAILY, (Reported) Fentanyl (Fentanyl), 75 MCG TD Q72H, (Reported) Hydromorphone HCl (Hydromorphone HCl), 1 TAB PO BID, (Reported) Insulin Lispro (Humalog), 1 UNITS SQ SLIDING SCALE, (Reported) Magnesium Citrate (MAGNESIUM CITRATE oral solution), 296 ML PO ONCE Methylnaltrexone [place] (Relistor), 3 TAB PO PRN Morphine Sulfate (Morphine Sulfate ER), 1 CAP PO TID, (Reported) Polyethylene Glycol 3350 (Miralax), 17 GM PO DAILY Sennosides/Docusate Sodium (Senna Plus 8.6-50 mg Tablet), 2 TAB PO HS, (Reported) Sodium,Potassium,&Mag Sulfates (Suprep Bowel Prep Kit), 1 EA PO UD Trazodone HCl (Trazodone HCl), 1 TAB PO HS, (Reported) Scheduled PRN Tramadol HCl (Tramadol HCl), 1 TAB PO TID PRN PRN for pain Zolpidem Tartrate* (Ambien*), 10 MG PO HS PRN for sleep, (Reported) Past Medical History Past Medical History: Constipation, Pancreatitis, Diabetes, Chronic Pain Past Surgical History: abdominal surgery, cholecystectomy Patient History: (CAD) Coronary arteriosclerosis FATHER Paternal Grandfather, Onset:Unknown FH: diabetes mellitus Paternal Grandfather Pacemaker MOTHER Alcohol Use: Rarely Drug Use: none Lives In: Home Review of Systems All Other Systems at this time: Reviewed and Negative Gastrointestinal: Reports: see HPI Physical Exam Vital Signs: RN Vital Signs have been reviewed: Yes, Temperature: 98.0, Heart Rate: 101, Respiratory Rate: 16, BP: 141/55, Pulse Oximetry: 95, Weight: 47.000 Oxygen Flow Rate: 0 Physical Exam General: Alert, no apparent distress. HEENT: moist mucous membranes. Neck: Full range of motion. Respiratory: No respiratory distress speaking in full sentences Chest: No accessory muscle use. Cardiovascular: Appears well perfused Gastrointestinal: Last 30 minutes normoactive bowel sounds present throughout no obvious tenderness or masses soft Neurologic: Oriented x4. Psychiatric: Normal mood and affect. Skin: Normal color, warm and dry. No edema, no ecchymosis. Progress Results/Orders Results/Orders Completed Orders - LIGIA CUADRA NP Tramadol Tablet (Ultram Tablet) (04/29/25 22:55) Docusate Sod Capsule (Colace Capsule) (04/29/25 22:55) Vital Signs 04/29/25 21:40 Temp 98.0 Pulse 101 Resp 16 B/P (MAP) 141/55 Pulse Ox 95 O2 Flow Rate 0 EKG/XRAY/CT/US/VASC/MRI Abdominal X-Ray : Additional Comment Exam: DI ABDOMEN,SINGLE VIEW(KUB) Indication: constipation Comparison: DI ABDOMEN,SINGLE VIEW(KUB) on DOS: 12/14/24, DI ABDOMEN,SINGLE VIEW(KUB) on DOS: 10/04/24, DI ABDOMEN,SINGLE VIEW(KUB) on DOS: 04/09/24, DI ABDOMEN,SINGLE VIEW(KUB) on DOS: 03/29/24, DI ABDOMEN,SINGLE VIEW(KUB) on DOS: 03/15/24 Technique: 2 radiographic views of the abdomen. Findings: Nonobstructive bowel gas pattern. Moderate stool burden. The lower chest is unremarkable, with similar right costophrenic angle blunting. No acute osseous finding. Impression: 1. Moderate stool burden. Nonobstructive bowel gas pattern. Medical Decision Making Findings Patient's initial complaint was constipation but he states it is constipation due to the inability to bear down because of broken rib pain. [facility] and diclofenac cream. Patient is requesting pain medications to alleviate rib pain to help to have a bowel movement. Patient was educated unaware that opiates can lead to constipation which he states that he did not care and that is what he needed to have a bowel movement. Patient's x-ray shows some stool burden but nonobstructive at this time Departure Time of Disposition: 23:07 Disposition: 01 HOME / SELF CARE / HOMELESS Impression: Primary Impression: Constipation Condition: Stable Discharge Instructions: Constipation, Adult Additional Instructions: Rest and stay well hydrated [facility] to evaluate for c onstipation and to better address pain management with rib fracture status post fall. Referrals: NO PRIMARY CARE PROVIDER (PCP) Prescriptions Polyethylene Glycol 3350 (Miralax) 17 Gram/Dose Powder 17 GM PO DAILY for constipation, #255 GM 0 Refills dissolve in water Prov: LIGIA CUADRA NP 04/29/25 Tramadol HCl (Tramadol HCl) 50 Mg Tablet 1 TAB PO TID PRN PRN for pain for 5 Days, #15 TAB Prov: LIGIA CUADRA NP 04/29/25 Education Educated: Patient, Family Educated regarding: diagnosis, treatment, need for follow up Signature Scribe Signature: No scribe Attestation: The note accurately reflects work and decisions made by me.Ligia MILTON 04/29/25 22:48 LIGIA CUADRA NP Apr 29, 2025 22:46
--- NOTE | 2025-04-29 22:59 | RADIOLOGY REPORT ---
Exam: DI ABDOMEN,SINGLE VIEW(KUB) Indication: constipation Comparison: DI ABDOMEN,SINGLE VIEW(KUB) on DOS: 12/14/24, DI ABDOMEN,SINGLE VIEW(KUB) on DOS: 10/04/24, DI ABDOMEN,SINGLE VIEW(KUB) on DOS: 04/09/24, DI ABDOMEN,SINGLE VIEW(KUB) on DOS: 03/29/24, DI ABDOMEN,SINGLE VIEW(KUB) on DOS: 03/15/24 Technique: 2 radiographic views of the abdomen. Findings: Nonobstructive bowel gas pattern. Moderate stool burden. The lower chest is unremarkable, with similar right costophrenic angle blunting. No acute osseous finding. Impression: 1. Moderate stool burden. Nonobstructive bowel gas pattern.
[2025-04-29] MEDS: docusate sod 100mg capsule PO ONE (23:49)
[2025-04-29 23:56] VITALS: TEMP 98
== END 2025-04-29 23:58 | disposition home or self-care (01) ==
LOC: ER 21:37
DX: K59.00 Constipation, unspecified (principal); I25.10 Atherosclerotic heart disease of native coronary artery without angina pectoris; G89.29 Other chronic pain; E11.9 Type 2 diabetes mellitus without complications; Z88.5 Allergy status to narcotic agent; Z90.49 Acquired absence of other specified parts of digestive tract; Z88.8 Allergy status to other drugs, medicaments and biological substances; Z87.19 Personal history of other diseases of the digestive system; Z79.899 Other long term (current) drug therapy; Z79.4 Long term (current) use of insulin
CPT/HCPCS: 74018; 99284

== ENCOUNTER → 2025-07-16 | Emergency (ER) | payer OTHER, MEDICARE ==
[~2025-07-16] VITALS: Ht 172.7 cm; Wt 55.0 kg
[~2025-07-16] MED LIST changes: +POLY119P2 PO; +POLY17PO10 PO
[2025-07-16 14:48] VITALS: BP 140/56; PULSE 98; RESP 15; TEMP 97.7; O2SAT 98
[2025-07-16] MEDS: methylnaltrexone br 12mg/0.6ml inj***SubQ only SQ ONE (15:24)
--- NOTE | 2025-07-16 16:30 | Physician Documentation ---
History of Present Illness ~ Chief Complaint: Constipation Stated Complaint: BOWEL IMPACTION Time Seen by MD: 15:50 Primary Medical Doctor: [facility] Patient with history of chronic constipation presents secondary to constipation for the past six days. Is passing gas. States feels like stool is in his rectum. Asking for digital disimpaction. Medication Reconciliation Allergies: Coded Allergies: codeine (Verified Allergy, Unknown, RED BLOTCHES, NAUSEA, 07/16/25) haloperidol (Verified Allergy, Unknown, 07/16/25) Scheduled Bisacodyl (Dulcolax), 2 TAB PO UD, (Reported) Cetirizine Hcl (Zyrtec), 10 MG PO HS, (Reported) Docusate Sodium (Docusate Sodium), 2 CAP PO BID, (Reported) Duloxetine Hcl (Cymbalta), 4 CAP PO DAILY, (Reported) Fentanyl (Fentanyl), 75 MCG TD Q72H, (Reported) Hydromorphone HCl (Hydromorphone HCl), 1 TAB PO BID, (Reported) Insulin Lispro (Humalog), 1 UNITS SQ SLIDING SCALE, (Reported) Magnesium Citrate (MAGNESIUM CITRATE oral solution), 296 ML PO ONCE Methylnaltrexone [place] (Relistor), 3 TAB PO PRN Morphine Sulfate (Morphine Sulfate ER), 1 CAP PO TID, (Reported) Polyethylene Glycol 3350 (Miralax), 17 GM PO DAILY Polyethylene Glycol 3350* (Miralax*), 1 PKT PO DAILY Sennosides/Docusate Sodium (Senna Plus 8.6-50 mg Tablet), 2 TAB PO HS, (Reported) Sodium,Potassium,&Mag Sulfates (Suprep Bowel Prep Kit), 1 EA PO UD Trazodone HCl (Trazodone HCl), 1 TAB PO HS, (Reported) Scheduled PRN Zolpidem Tartrate* (Ambien*), 10 MG PO HS PRN for sleep, (Reported) Past Medical History Past Medical History: Constipation, Pancreatitis, Diabetes, Chronic Pain Past Surgical History: abdominal surgery, cholecystectomy Patient History: (CAD) Coronary arteriosclerosis FATHER Paternal Grandfather, Onset:Unknown FH: diabetes mellitus Paternal Grandfather Pacemaker MOTHER Alcohol Use: Rarely Drug Use: none Lives In: Home Review of Systems ROS Review of systems negative except documented in HPI. Physical Exam Vital Signs: Temperature: 97.7, Source: Temporal, Heart Rate: 98, Respiratory Rate: 15, BP: 140/56, Pulse Oximetry: 98, Weight: 55.000 Pulse Oximetry Reflects: adequate oxygenation Physical Exam General: Awake, alert, oriented. No apparent distress Respiratory: Lungs are clear to auscultation bilaterally. No respiratory distress. Chest: Normal shape and size. No accessory muscle use. Cardiovascular: Regular rate and rhythm. S1-S2. No murmur, gallop, rub. Gastrointestinal: Abdomen is soft. Nontender to palpation. Bowel sounds present. No guarding or rebound tenderness. GI: Followed by catheter is in place with straw-colored urine Extremities: No lower extremity edema, cyanosis or clubbing. Neurologic: Alert and oriented x4. Nonfocal Psychiatric: Normal mood and affect. Skin: Normal color. Warm and dry. Progress Progress Note Vistaril disimpaction was performed. Moderate amount of firm, brown stool. Results/Orders Results/Orders Orders - ROSANNA VILLAGOMEZ [facility] ASS[facility]MENT AND TREATMENT TEACHER Enema (07/16/25 ) Vital Signs 07/16/25 14:48 Temp 97.7 Pulse 98 Resp 15 B/P (MAP) 140/56 Pulse Ox 98 Medical Decision Making Findings Patient presents secondary to constipation. He took his home Haque through this morning with no effect. States that he feels like there is stool in his rectal vault. He has history of chronic constipation on senna and Colace as well. He follows with the [facility]. His abdominal exam is unremarkable. He is passing gas and does have active bowel sounds. As requested digital disimpaction performed with moderate amount of brown firm stool. There is low clinical suspicion for a bowel obstruction at this time. Recommend that he f ollow up with his primary care provider. Warning signs and symptoms were reviewed. He will follow up as scheduled. Diff Dx GI Bleed:Consideration: Include: Diverticulitis, Inflammatory BD Diff Dx Pain:Considerations: Include: Constipation, Diverticular disease, GI hemorrhage, Ischemic bowel, Mass Diff Dx N/V/D:Considerations: Include: Bowel obstruction, Dehydration Diff Dx Rectal:Considerations: Include: Impaction Departure Time of Disposition: 16:27 Disposition: 01 HOME / SELF CARE / HOMELESS Impression: Primary Impression: Constipation Qualified Codes: K59.04 - Chronic idiopathic constipation Condition: Stable Discharge Instructions: Constipation, Adult Additional Instructions: Recommend that you follow up with your primary care provider with regards to your chronic constipation. You may take MiraLax with relief sister. You generally stop it when you are 1st starting the medication but is continued constipation it is okay to take them together. Please return for any new or w orsening symptoms. Prescriptions Polyethylene Glycol 3350* (Miralax*) 1 Packet Packet 1 PKT PO DAILY for constipation for 2 Days, #2 PKT dissolve in water Prov: ROSANNA VILLAGOMEZ NP 07/16/25 Education Educated: Patient Educated regarding: diagnosis, treatment, need for follow up Signature Scribe Signature: No scribe Attestation: The note accurately reflects work and decisions made by me.Rosanna Villagomez - [place] 07/16/25 17:06 ROSANNA VILLAGOMEZ NP Jul 16, 2025 16:30
== END | disposition home or self-care (01) ==
LOC: ER 14:41
DX: K59.00 Constipation, unspecified (principal); I25.10 Atherosclerotic heart disease of native coronary artery without angina pectoris; G89.29 Other chronic pain; E11.9 Type 2 diabetes mellitus without complications; Z79.4 Long term (current) use of insulin; Z87.19 Personal history of other diseases of the digestive system; Z88.5 Allergy status to narcotic agent; Z88.8 Allergy status to other drugs, medicaments and biological substances; Z90.49 Acquired absence of other specified parts of digestive tract
CPT/HCPCS: 99284

== ENCOUNTER 2025-07-21 23:51 | Emergency (ER) | payer OTHER, MEDICARE ==
[~2025-07-21] VITALS: Ht 177.8 cm; Wt 64.0 kg
[~2025-07-21 23:51] MED LIST changes: -POLY17PO10 PO
[2025-07-22] MEDS: LIDOcaine 1% W/epiNEPHrine 1:100,000 20ml vial IJ ONE (00:33)
[2025-07-22] MEDS: bacitracin 15gm ointment TP ONE (00:34)
[2025-07-22] MEDS: TETanus/Pertussis (Acell)/Diphther VAC/PF (Tdap-Adult) 0.5ml syringe IMVAC ONE (00:34)
--- NOTE | 2025-07-22 01:09 | Physician Documentation ---
History of Present Illness ~ Chief Complaint: Laceration Stated Complaint: FELL AND HURT BACK Time Seen by MD: 01:08 OK to notify your PCP?: Yes Primary Medical Doctor: [facility] Source: patient, RN/, RN notes reviewed, old records Mode of Arrival: POV Exam Limitations: no limitations HPI 69-year-old male presents to the ER with chief complaint of mechanical fall. He slipped on the ground and landed on towel rack in his kitchen. He notes he is in pain. He is a diabetic, glucose levels are currently high. He uses a walker. Hernandez dependent. Patient denies any nausea vomiting no head trauma. Tetanus Within 5 Years: Yes Medication Reconciliation Allergies: Coded Allergies: codeine (Verified Allergy, Unknown, RED BLOTCHES, NAUSEA, 07/16/25) haloperidol (Verified Allergy, Unknown, 07/16/25) Scheduled Bisacodyl (Dulcolax), 2 TAB PO UD, (Reported) Cephalexin*Monohydrate* (Keflex*), 1 TAB PO Q8H Cetirizine Hcl (Zyrtec), 10 MG PO HS, (Reported) Docusate Sodium (Docusate Sodium), 2 CAP PO BID, (Reported) Duloxetine Hcl (Cymbalta), 4 CAP PO DAILY, (Reported) Fentanyl (Fentanyl), 75 MCG TD Q72H, (Reported) Hydromorphone HCl (Hydromorphone HCl), 1 TAB PO BID, (Reported) Insulin Lispro (Humalog), 1 UNITS SQ SLIDING SCALE, (Reported) Magnesium Citrate (MAGNESIUM CITRATE oral solution), 296 ML PO ONCE Methylnaltrexone [place] (Relistor), 3 TAB PO PRN Morphine Sulfate (Morphine Sulfate ER), 1 CAP PO TID, (Reported) Polyethylene Glycol 3350 (Miralax), 17 GM PO DAILY Sennosides/Docusate Sodium (Senna Plus 8.6-50 mg Tablet), 2 TAB PO HS, (Reported) Sodium,Potassium,&Mag Sulfates (Suprep Bowel Prep Kit), 1 EA PO UD Trazodone HCl (Trazodone HCl), 1 TAB PO HS, (Reported) Scheduled PRN Zolpidem Tartrate* (Ambien*), 10 MG PO HS PRN for sleep, (Reported) Discontinued Medications Polyethylene Glycol 3350* (Miralax*), 1 PKT PO DAILY Discontinued Reason: Auto Discontinued Past Medical History Past Medical History: Constipation, Pancreatitis, Diabetes, Chronic Pain Past Surgical History: abdominal surgery, cholecystectomy Other Past Surgical History: Left metatarsal, gallbladder, 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 Physical Exam Vital Signs: RN Vital Signs have been reviewed: Yes, Temperature: 98.2, Source: Temporal, Heart Rate: 98, Respiratory Rate: 18, BP: 146/84, Pulse Oximetry: 99, Weight: 64.000 Oxygen Flow Rate: 0 Physical Exam General: The patient is well developed, well nourished, nontoxic appearing and is in no moderate distress. He is in pain. Uses walker. Skin: [place], warm and dry with no rashes. Laceration to right upper arm. Deep laceration L shape dimension 6 X 4. HEENT: Head was normocephalic. Eyes - pupils equal, round, reactive to light and accommodation. Extraocular movements were intact. Conjunctivae were nonicteric. The mouth and oropharynx were clear with moist mucous membranes. There were no pharyngeal exudates or erythema. Neck: Supple and nontender. There was no jugular venous distention, lymphadenopathy, thyromegaly or masses. Chest: Clear to auscultation bilaterally without wheezes, rales or rhonchi. No accessory muscle use. No dullness to percussion. Heart: Rate regular and rhythmic. S1, S2. No murmurs. Palpation of the chest wall was normal. No rubs or thrills. Abdomen: Soft, nontender and nondistended. Positive bowel sounds. No guarding or rebound. No hepatosplenomegaly or palpable masses. : Hernandez dependent. Extremities: No cyanosis, clubbing or edema. The patient moves all extremities. Pulses were equal and symmetric. Neurologic: Motor systems are grossly intact. Psychologic: The patient was oriented to person, place and time. The patient demonstrated appropriate judgement and insight. Procedures Laceration/Wound Repair Laceration : Location: Right upper arm Length (cm): 10 Anesthesia: Lidocaine w/ Epi Volume Anesthetic (mls): 10 Prep: irrigated by nurse Irrigated w/ Saline (mls): 500 Debrided: minimal Undermining: none Margins: flaps aligned Foreign Body: not identified Repaired: subcutaneous Wound Repaired With: sutures Suture Size/Type: 3-0 Number of Superficial Sutures: 7 Layer Closure?: No Dressing Applied: simple Splint Applied?: No Sling Applied?: No Tolerated Procedure Well?: yes, no complications Procedure Note The L-shaped laceration measuring six by four cm. Progress Results/Orders Reviewed/noted all lab results: Yes Results/Orders Completed Orders - NEO HILL MD Hydrocodone/Apap 5/325mg Tab ([place] 5/32 (07/22/25 01:15) Cephalexin Capsule (Keflex Capsule) (07/22/25 01:15) Medications Received in ER Medications (Trade) Dose Ordered Sig/Ant Route PRN Reason Start Time Stop Time Status Last Admin Dose Admin (Xylocaine 1%-EPI 1:100,000) 10 ml ONCE ONCE IJ 07/22/25 00:00 07/22/25 00:01 DC 07/22/25 00:33 10 ML (Boostrix vaccine syringe) 0.5 ml ONCE ONCE IMVAC 07/22/25 00:00 07/22/25 00:01 DC 07/22/25 00:34 0.5 ML (bacitracin ointment) 1 applic ONCE ONCE TP 07/22/25 00:00 07/22/25 00:01 DC 07/22/25 00:34 1 APPLIC ([place] 5/325mg tablet) 1 tab ONCE ONCE PO 07/22/25 01:15 07/22/25 01:16 DC 07/22/25 01:37 1 TAB (Keflex capsule) 500 mg ONCE ONCE PO 07/22/25 01:15 07/22/25 01:16 DC 07/22/25 01:37 500 MG Vital Signs 07/21/25 07/22/25 07/22/25 07/22/25 23:56 00:38 01:37 01:55 Temp 98.2 98.1 Pulse 99 98 80 Resp 18 18 18 18 B/P (MAP) 161/93 146/84 (104) 134/80 Pulse Ox 97 99 99 O2 Flow Rate 0 Re-Evaluation Re-Evaluation : Re-Evaluation: Improved Progress Patient was seen and examined. Patient is given reassurance. Patient received tetanus. He has a significant deep laceration. Fortunately when he fell his shirt was not torn and prevented the laceration from getting much worse. The patient was sutured. He has a diabetic high-risk for infection although this happened in the house in a relatively clean location. Patient was started on Keflex received pain medications as well as ointment. Because of how deep the laceration was patient should have it remain in place for 14 days. Also because of advanced age frail tobacco smoking patient should probably take the stitches out alternative stitches to make sure that there is no wound dehiscence. Otherwise patient appears well. And patient was then discharged home after suture repair. Medical Decision Making Additional information obtaine: old records Findings Deep laceration and repair Differential Dx:Considerations: Include: Abrasion, Avulsion, Contusion, Laceration, Fracture, Hematoma, Neurovascular injury, Retained foreign body, Other Departure Disposition: 01 HOME / SELF CARE / HOMELESS Impression: Primary Impression: Laceration Discharge Instructions: Laceration Care, Adult, [id number], Laceration Care (Skin Glue) Additional Instructions: Remove sutures in 14 days, return if experiencing any signs of infection. Referrals: NO PRIMARY CARE PROVIDER (PCP) Prescriptions Cephalexin*Monohydrate* (Keflex*) 250 Mg Capsule 1 TAB PO Q8H for 5 Days, #15 TAB Prov: NEO HILL MD 07/22/25 Education Educated: Patient, Family Educated regarding: diagnosis, treatment Signature Scribe Signature: Scribed for Neo Hill MD by Viji Scales . 07/22/25 01:19 Attestation: The note accurately reflects work and decisions made by me.Neo Hill MD 07/22/25 01:09 NEO HILL MD Jul 22, 2025 01:09 VIJI HILL Jul 22, 2025 01:19
[2025-07-22] MEDS ORDERED: CEPH250T PO (01:15)
[2025-07-22] MEDS: HYDROcodone/acetaminophen 5mg/325mg tablet PO ONE (01:37)
[2025-07-22 01:55] VITALS: BP 134/80; PULSE 80; RESP 18; TEMP 98.1; O2SAT 99
== END 2025-07-22 02:00 | disposition home or self-care (01) ==
LOC: ER 23:51
DX: S41.111A Laceration without foreign body of right upper arm, initial encounter (principal); E11.9 Type 2 diabetes mellitus without complications; G89.29 Other chronic pain; I25.10 Atherosclerotic heart disease of native coronary artery without angina pectoris; Z88.5 Allergy status to narcotic agent; Z88.8 Allergy status to other drugs, medicaments and biological substances; Z87.19 Personal history of other diseases of the digestive system; Z90.49 Acquired absence of other specified parts of digestive tract; Z79.899 Other long term (current) drug therapy; Z79.4 Long term (current) use of insulin; W01.198A Fall on same level from slipping, tripping and stumbling with subsequent striking against other object, initial encounter; Y93.89 Activity, other specified; Y92.000 Kitchen of unspecified non-institutional (private) residence as the place of occurrence of the external cause; Y99.8 Other external cause status
CPT/HCPCS: 12004; 90471; 90715; 99284; J3490; J7030; A6446; A6449

== ENCOUNTER 2025-07-26 07:32 | Emergency (ER) | payer MEDICARE, OTHER ==
[~2025-07-26] VITALS: Ht 177.8 cm; Wt 68.5 kg
[~2025-07-26 07:32] MED LIST changes: +CEPH250T PO
[2025-07-26 07:34] VITALS: BP 135/74; PULSE 94; TEMP 99; O2SAT 97
--- NOTE | 2025-07-26 07:59 | Physician Documentation ---
History of Present Illness ~ Chief Complaint: Constipation Stated Complaint: CONSTIPATION Time Seen by MD: 07:58 OK to notify your PCP?: Yes Primary Medical Doctor: ANUP Source: patient, RN/, RN notes reviewed, old records Mode of Arrival: POV Exam Limitations: no limitations HPI Patient is a 69-year-old male with history of chronic constipation due to senior living opioid therapy presents to the ED for fecal impaction. Patient reports that his last bowel movement was three days ago. He has been drinking water, coffee and has been compliant to his medications. Patient is already on Relistor, senna and Colace. Also recently took MiraLax, but did not have any relief. Patient's was last evaluated here in the ED on 07/16/2025 for the same symptoms, and today he requests to be digitally disimpacted again. He ambulates with a walker at baseline. Patient denies any other associated symptoms at this time. Patient denies any other alleviating or exacerbating factors. Medication Reconciliation Allergies: Coded Allergies: codeine (Verified Allergy, Unknown, RED BLOTCHES, NAUSEA, 07/26/25) haloperidol (Verified Allergy, Unknown, 07/26/25) Scheduled Bisacodyl (Dulcolax), 2 TAB PO UD, (Reported) Cephalexin*Monohydrate* (Keflex*), 1 TAB PO Q8H Cetirizine Hcl (Zyrtec), 10 MG PO HS, (Reported) Docusate Sodium (Docusate Sodium), 2 CAP PO BID, (Reported) Duloxetine Hcl (Cymbalta), 4 CAP PO DAILY, (Reported) Fentanyl (Fentanyl), 75 MCG TD Q72H, (Reported) Hydromorphone HCl (Hydromorphone HCl), 1 TAB PO BID, (Reported) Insulin Lispro (Humalog), 1 UNITS SQ SLIDING SCALE, (Reported) Magnesium Citrate (MAGNESIUM CITRATE oral solution), 296 ML PO ONCE Methylnaltrexone [place] (Relistor), 3 TAB PO PRN Morphine Sulfate (Morphine Sulfate ER), 1 CAP PO TID, (Reported) Polyethylene Glycol 3350 (Miralax), 17 GM PO DAILY Sennosides/Docusate Sodium (Senna Plus 8.6-50 mg Tablet), 2 TAB PO HS, (Reported) Sodium,Potassium,&Mag Sulfates (Suprep Bowel Prep Kit), 1 EA PO UD Trazodone HCl (Trazodone HCl), 1 TAB PO HS, (Reported) Scheduled PRN Zolpidem Tartrate* (Ambien*), 10 MG PO HS PRN for sleep, (Reported) Discontinued Medications Polyethylene Glycol 3350* (Miralax*), 1 PKT PO DAILY Discontinued Reason: Auto Discontinued Past Medical History Past Medical History: Constipation, Pancreatitis, Diabetes, Chronic Pain Other Past Medical History: Patient on senior living opioid therapy for chronic back pain Past Surgical History: abdominal surgery, cholecystectomy Other Past Surgical History: Left metatarsal, gallbladder, 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 Physical Exam Vital Signs: RN Vital Signs have been reviewed: Yes, Temperature: 99.0, Source: Oral, Heart Rate: 94, Respiratory Rate: 15, BP: 135/74, Pulse Oximetry: 97, Weight: 68.500 Oxygen Flow Rate: 0 Physical Exam General: Awake, alert, oriented. Appears uncomfortable. Respiratory: Lungs are clear to auscultation bilaterally. No respiratory distress. Chest: Normal shape and size. No accessory muscle use. Cardiovascular: Regular rate and rhythm. S1-S2. No murmur, gallop, rub. Gastrointestinal: Abdomen is slightly distended. Decreased bowel sounds. Nontender to palpation. No guarding or rebound tenderness. GI: Followed by catheter is in place with straw-colored urine Extremities: No lower extremity edema, cyanosis or clubbing. Neurologic: Alert and oriented x4. Nonfocal Psychiatric: Normal mood and affect. Skin: Normal color. Warm and dry. Procedures Procedures Patient had fecal disimpaction done by [facility], Dr. Hill. Removed one nugget of stool, vault was empty. Patient tolerated well, no complications. Progress Results/Orders Reviewed/noted all lab results: Yes Results/Orders Orders - NEO HILL MD Abdomen,Single View(Kub) (07/26/25 07:42) Completed Orders - NEO HILL MD Abdomen,Single View(Kub) (07/26/25 07:42) Normal Saline 1000ml (0.9% Sodium Chlori (07/26/25 08:00) Bisacodyl Delayed-Release Tab (Dulcolax (07/26/25 08:00) Lactulose Oral Solution (Cephulac Oral S (07/26/25 08:10) Bisacodyl Suppository (Dulcolax Supposit (07/26/25 08:15) Normal Saline 1000ml (0.9% Sodium Chlori (07/26/25 12:00) Methylnaltrexone Br Inj (Relistor Inj (07/26/25 12:00) Medications Received in ER Medications (Trade) Dose Ordered Sig/Ant Route PRN Reason Start Time Stop Time Status Last Admin Dose Admin (0.9% sodium chloride (NS) 1000ml IV soln) 1,000 ml ONCE ONCE IVB 07/26/25 08:00 07/26/25 08:01 DC 07/26/25 08:19 1,000 ML (cephulac oral solution) 20 gm ONCE ONCE PO 07/26/25 08:10 07/26/25 08:14 DC 07/26/25 08:28 20 GM (Dulcolax suppository) 10 mg ONCE ONCE RC 07/26/25 08:15 07/26/25 08:16 DC 07/26/25 08:28 10 MG Vital Signs 07/26/25 07/26/25 07/26/25 07:34 12:00 12:47 Temp 99.0 Pulse 94 Resp 15 16 16 B/P (MAP) 135/74 Pulse Ox 97 O2 Flow Rate 0 Re-Evaluation Re-Evaluation : Re-Evaluation: Improved Progress Patient was seen and examined. Patient did not want Relistor he has the medications at home. Patient should received a fluid bolus as well as Dulcolax suppositories fecal disimpaction was minimally successful his colon was mostly clear. He is feeling much better at time of discharge. He also received some lactulose x-ray showed significant constipation. EKG/XRAY/CT/US/VASC/MRI Abdominal X-Ray : Interpreted By: radiologist Number of Xray Views: 1 VIEW Additional Comment ABDOMINAL RADIOGRAPH INDICATION: Constipation TECHNIQUE: Single frontal view of the abdomen was obtained COMPARISON: DI ABDOMEN,SINGLE VIEW(KUB) on DOS: 04/29/25 FINDINGS: Lines and tubes: None There is a nonobstructive bowel gas pattern. Diffuse stool throughout the colon. No supine radiographic evidence of pneumoperitoneum. Bony structures unremarkable. IMPRESSION: 1. Stool throughout the colon which may reflect constipation. 2. No dilated bowel loops. Electronically Signed by:JOSE ANGEL LIRIANO MD Date & Time: 07/26/25 0811 Medical Decision Making Additional information obtaine: old records Findings Severe constipation, disimpaction fluids medications both p.o. VA. Diff Dx GI Bleed:Consideration: Include: AE fistula, Angiodysplasia, Bleeding diathesis, Blood loss anemia, Carcinoma, Diverticulosis, Diverticulitis, Esophageal varicies, Esophagitis, Gastritis, Gastroenteritis, Inflammatory BD, Deborah-Balderas syndrome, Meckel's diverticulum, PUD, Other Diff Dx Pain:Considerations: Include: AAA, Angina/TX, Aortic dissection, Appendicitis, Bowel obstruction, Cholangitis, Cholecystitis, Cholelithasis, Constipation, Diverticular disease, Esophageal rupture, Esophagitis, Gastritis, Gastroenteritis, GI hemorrhage, Hepatitis, Hernia, Inflammatory BD, Ischemic bowel, Mass, Pancreatitis, Porphyria, PUD, Testicular torsion, Trauma, intraa bdominal, Urinary obstruction, Urinary tract infection, Urolithiasis, Other Diff Dx N/V/D:Considerations: Include: Appendicitis, Bowel obstruction, Dehydration, DKA, Diarrhea - bacterial, Diarrhea - parasitic, Diarrhea - viral, Diverticulitis, Diverticulosis, Drug toxicity, Electrolyte imbalance, Food poisoning, Gastroenteritis, GE reflux, GI bleed, Hepatitis, Hernia, Hypovolemia, Hypotension, Inflammatory BD, Impaction, Malnutrition, Pancreatitis, PUD, Renal failure, Urinary obstruction, UTI, Urolithiasis, Other Diff Dx Rectal:Considerations: Include: Fissure, Fistula, Foreign body, Impac tion, Perirectal abscess, Prostatitis, Rectal prolapse, Subcutaneous abscess, Thrombosed hemorrhoid, Ulcer, UTI, Other Departure Time of Disposition: 12:01 Disposition: 01 HOME / SELF CARE / HOMELESS Impression: Primary Impression: Constipation due to opioid therapy Additional Impression: Fecal disimpaction Condition: Stable Discharge Instructions: Fecal Impaction, Constipation, Adult Additional Instructions: As discussed, lower then the intake of your opioid medications to help with your constipation. Continue drinking fluids and coffee to help with movements. Follow up with your primary care doctor regarding today's visit. Return to the ED for any new or worsening symptoms. Referrals: NO PRIMARY CARE PROVIDER (PCP) Education Educated: Patient Educated regarding: diagnosis, treatment Signature Scribe Signature: Scribed for Neo Hill MD by Clyde Scales . 07/26/25 08:02 Attestation: The note accurately reflects work and decisions made by me.Neo Hill MD 07/26/25 07:59 NEO HILL MD Jul 26, 2025 07:59 CLYDE FALCON Jul 26, 2025 08:04
[2025-07-26] MEDS: bisacodyl 5mg tablet.DR PO ONE (08:10)
--- NOTE | 2025-07-26 08:13 | RADIOLOGY REPORT ---
ABDOMINAL RADIOGRAPH INDICATION: Constipation TECHNIQUE: Single frontal view of the abdomen was obtained COMPARISON: DI ABDOMEN,SINGLE VIEW(KUB) on DOS: 04/29/25 FINDINGS: Lines and tubes: None There is a nonobstructive bowel gas pattern. Diffuse stool throughout the colon. No supine radiographic evidence of pneumoperitoneum. Bony structures unremarkable. IMPRESSION: 1. Stool throughout the colon which may reflect constipation. 2. No dilated bowel loops.
[2025-07-26] MEDS: normal saline 1000ML IV soln IVB ONE ×2 (08:19→12:49)
[2025-07-26] MEDS: lactulose 20gm/30ml cup PO ONE (08:28)
[2025-07-26] MEDS: bisacodyl 10mg suppository rectal RC ONE (08:28)
[2025-07-26 12:47] VITALS: RESP 16
[2025-07-26] MEDS: methylnaltrexone br 12mg/0.6ml inj***SubQ only SQ ONE (12:49)
== END 2025-07-26 12:50 | disposition home or self-care (01) ==
LOC: ER 07:32
DX: K59.03 Drug induced constipation (principal); T40.2X5A Adverse effect of other opioids, initial encounter; E11.9 Type 2 diabetes mellitus without complications; G89.29 Other chronic pain; I25.10 Atherosclerotic heart disease of native coronary artery without angina pectoris; Z87.19 Personal history of other diseases of the digestive system; Z88.5 Allergy status to narcotic agent; Z88.8 Allergy status to other drugs, medicaments and biological substances; Z90.49 Acquired absence of other specified parts of digestive tract; Z79.891 Long term (current) use of opiate analgesic; Z79.4 Long term (current) use of insulin; Z79.899 Other long term (current) drug therapy; Y92.89 Other specified places as the place of occurrence of the external cause
CPT/HCPCS: 74018; 96360; 99284; J7030